=== PATIENT | female | born 1985 | race American Indian/Alaskan Native ===

== ENCOUNTER 2016-10-10 15:44 | Emergency (ER) | payer SELFPAY ==
[2016-10-10 16:29] LABS: Bilirubin,Urine NEG (Negative); Blood,Urine SM (Negative); Ketones,Urine NEG (Negative); Leukocyte Esterase,Urine SM (Negative); Mucus,Urine FEW /HPF; Nitrite,Urine NEG (Negative); Urobilinogen,Urine < 2.0 mg/dL (<2.0)
[2016-10-10 16:44] LABS: Basophils % (Auto) 0.7 % (0.0-1.8); Eosinophils % (Auto) 1.2 % (0.0-4.3); Hematocrit 41.8 % (30.3-42.9); Hemoglobin 13.7 gm/dl (10.1-14.3); Mean Corpuscular HGB Conc 33 % (30-34); Mean Corpuscular Hemoglobin 28 pg (28-32); Mean Corpuscular Volume 86 fl (79-97); Platelet Count 263 K/mm3 (140-440); Red Blood Count 4.85 M/mm3 (3.65-5.03); Red Cell Distribution Width 12.7 % (13.2-15.2); White Blood Count 12.2 K/mm3 (4.5-11.0)
[2016-10-10 16:59] LABS: Alanine Aminotransferase 14 units/L (7-56); Albumin 4.4 g/dL (3.9-5); Albumin/Globulin Ratio 1.1 %; Alkaline Phosphatase 77 units/L (35-129); Anion Gap 17 mmol/L; BUN/Creatinine Ratio 12.22; Blood Urea Nitrogen 11 mg/dL (7-17); Calcium 9.8 mg/dL (8.4-10.2); Carbon Dioxide 28 mmol/L (22-30); Chloride 98.2 mmol/L (98-107); Glucose 96 mg/dL (65-100); Lipase 17 units/L (13-60); Potassium 4.4 mmol/L (3.6-5.0); Sodium 139 mmol/L (137-145); Total Protein 8.3 g/dL (6.3-8.2)
[2016-10-10] MEDS ORDERED: ZOFRAN PO ONE (19:13)
[2016-10-10] MEDS ORDERED: TORADOL IM ONE (19:13)
[2016-10-10] MEDS ORDERED: ZOFRAN ODT PO ONE (20:00)
[2016-10-10 20:10] VITALS: BP 131/98
--- NOTE | 2016-10-10 21:09 | Emergency Department Report ---
Entered by FABBY MUÑOZ, acting as scribe for MARK MENDEZ PA. ED Abdominal Pain HPI - General Chief Complaint: Abdominal Pain Stated Complaint: LT SIDE PAIN/ABD PAIN/PRESSURE WHEN URINATE Source: patient Mode of arrival: Ambulatory Limitations: No Limitations - History of Present Illness Initial Comments: 31 year old female with no significant PMHx presents to the ED left lower abdominal pain that began 1 week ago. Associated symptoms include nausea, vomiting, and hematuria, but she denies vaginal discharge, vaginal itching, back pain, chest pain, and SOB. Patients states she feels pressure in her lower abdomen during urination. Denies any Hx of kidney stones or similar abdominal symptoms. Notes she had a in 2011, which she experiences sharp left pain on incision scar. LMP 10/01/2016. Complaint: abdominal pain Onset/Timin -: week(s) Location: LLQ, suprapubic Radiation: none, suprapubic Migration to: no migration Severity: moderate Quality: sharp, other (pressure during urination) Consistency: constant Improves With: nothing Worsens With: other (urination) Associated Symptoms: denies other symptoms, nausea, vomiting, hematuria. denies : diarrhea, fever, chills, dysuria, other (vaginal discharge, vaginal itching, back pain, chest pain, and SOB) - Related Data LMP Date: 10/01/16 LMP (females 10-50): last week Previous Rx's Medication Instructions Recorded Last Taken Type Ondansetron [Zofran Odt] 4 mg PO BID PRN #6 tab.rapdis 10/10/16 Unknown Rx Phenazopyridine [Pyridium] 100 mg PO TID #9 tab 10/10/16 Unknown Rx Sulfamethoxazole/Trimethoprim 1 each PO BID #20 tablet 10/10/16 Unknown Rx [Bactrim DS TAB] Allergies Allergy/AdvReac Type Severity Reaction Status Date / Time No Known Allergies Allergy Unverified 10/10/16 15:54 ED Review of Systems Comment: All other systems reviewed and negative Constitutional: denies: chills, fever Eyes: denies: eye pain ENT: denies: ear pain, throat pain Respiratory: no symptoms reported. denies: cough, shortness of breath Cardiovascular: denies: chest pain Endocrine: no symptoms reported Gastrointestinal: abdominal pain (left lower), nausea, vomiting. denies: diarrhea Genitourinary: dysuria, hematuria. denies: discharge, other (vaginal itching) Musculoskeletal: denies: back pain Skin: denies: rash Neurological: denies: headache, numbness Psychiatric: denies: anxiety, depression Hematological/Lymphatic: denies: easy bleeding ED Past Medical Hx - Past Medical History Previous Medical History?: No - Surgical History Past Surgical History?: Yes Additional Surgical History: - Social History Smoking Status: Never Smoker Substance Use Type: Alcohol - Medications Home Medications: Home Medications Medication Instructions Recorded Confirmed Last Taken Type Ondansetron [Zofran Odt] 4 mg PO BID PRN #6 tab.rapdis 10/10/16 Unknown Rx Phenazopyridine [Pyridium] 100 mg PO TID #9 tab 10/10/16 Unknown Rx Sulfamethoxazole/Trimethoprim 1 each PO BID #20 tablet 10/10/16 Unknown Rx [Bactrim DS TAB] ED Physical Exam - General Limitations: No Limitations General appearance: alert, in no apparent distress - Head Head exam: Present: atraumatic, normocephalic - Eye Eye exam: Present: normal appearance, EOMI - ENT ENT exam: Present: normal exam, mucous membranes moist - Neck Neck exam: Present: normal inspection, full ROM - Respiratory Respiratory exam: Present: normal lung sounds bilaterally. Absent: respiratory distress - Cardiovascular Cardiovascular Exam: Present: regular rate, normal rhythm. Absent: systolic murmur, diastolic murmur, rubs, gallop - GI/Abdominal GI/Abdominal exam: Present: soft, tenderness (LLQ), normal bowel sounds, other ( no CVA tenderness). Absent: distended, guarding, rebound, rigid - Rectal Rectal exam: Present: deferred - External exam: Present: normal external exam Speculum exam: Absent: erythema, vaginal discharge, vaginal bleeding - Extremities Exam Extremities exam: Present: normal inspection, full ROM - Back Exam Back exam: Present: normal inspection, full ROM - Neurological Exam Neurological exam: Present: alert, oriented X3, normal gait - Psychiatric Psychiatric exam: Present: normal affect, normal mood - Skin Skin exam: Present: warm, dry, intact. Absent: rash ED Course Vital Signs 10/10/16 10/10/16 10/10/16 15:51 20:09 20:10 Temperature 97.7 F Pulse Rate 79 86 Respiratory 16 18 18 Rate Blood Pressure 151/98 Blood Pressure 131/98 [Left] O2 Sat by Pulse 100 99 99 Oximetry ED Medical Decision Making - Lab Data Result diagrams: 10/10/16 16:01 10/10/16 16:01 Lab Results 10/10/16 10/10/16 10/10/16 Range/Units 16:01 16:01 16:03 WBC 12.2 H (4.5-11.0) K/mm3 RBC 4.85 (3.65-5.03) M/mm3 Hgb 13.7 (10.1-14.3) gm/dl Hct 41.8 (30.3-42.9) % MCV 86 (79-97) fl MCH 28 (28-32) pg MCHC 33 (30-34) % RDW 12.7 L (13.2-15.2) % Plt Count 263 (140-440) K/mm3 Lymph % (Auto) 27.0 (13.4-35.0) % [place] % (Auto) 5.4 (0.0-7.3) % Eos % (Auto) 1.2 (0.0-4.3) % Baso % (Auto) 0.7 (0.0-1.8) % Lymph # 3.3 (1.2-5.4) K/mm3 [place] # 0.7 (0.0-0.8) K/mm3 Eos # 0.1 (0.0-0.4) K/mm3 Baso # 0.1 (0.0-0.1) K/mm3 Seg Neutrophils % 65.7 (40.0-70.0) % Seg Neutrophils # 8.0 H (1.8-7.7) K/mm3 Sodium 139 (137-145) mmol/L Potassium 4.4 (3.6-5.0) mmol/L Chloride 98.2 (98-107) mmol/L Carbon Dioxide 28 (22-30) mmol/L Anion Gap 17 mmol/L BUN 11 (7-17) mg/dL Creatinine 0.9 (0.7-1.2) mg/dL Estimated GFR > 60 ml/min BUN/Creatinine Ratio 12.22 % Glucose 96 (65-100) mg/dL Calcium 9.8 (8.4-10.2) mg/dL Total Bilirubin 0.30 (0.1-1.2) mg/dL AST 18 (5-40) units/L ALT 14 (7-56) units/L Alkaline Phosphatase 77 (35-129) units/L Total Protein 8.3 H (6.3-8.2) g/dL Albumin 4.4 (3.9-5) g/dL Albumin/Globulin Ratio 1.1 % Lipase 17 (13-60) units/L Urine Color Yellow (Yellow) Urine Turbidity Clear (Clear) Urine pH 6.0 (5.0-7.0) Ur Specific [place] 1.016 (1.003-1.030) Urine Protein 100 mg/dl (Negative) mg/dL Urine Glucose (UA) Neg (Negative) mg/dL Urine Ketones Neg (Negative) mg/dL Urine Blood Sm (Negative) Urine Nitrite Neg (Negative) Urine Bilirubin Neg (Negative) Urine Urobilinogen < 2.0 (<2.0) mg/dL Ur Leukocyte Esterase Sm (Negative) Urine WBC (Auto) 95.0 H (0.0-6.0) /HPF Urine RBC (Auto) 14.0 (0.0-6.0) /HPF U Epithel Cells (Auto) < 1.0 (0-13.0) /HPF Urine Mucus Few /HPF Urine HCG, Qual Negative (Negative) - Medical Decision Making 31 year old female presents to ED with left sided lower abd pain/pelvic pain and dysuria x1 week. patient lab results consistent with UTI and will be prescribed Bactrim and Pyridium. patient is stable, neurologically intact and in no acute distress. ED Disposition Clinical Impression: UTI (urinary tract infection) Qualifiers: Urinary tract infection type: acute cystitis Hematuria presence: with hematuria Qualified Code(s): N30.01 - Acute cystitis with hematuria Disposition: DISCHARGED TO HOME OR SELFCARE Is pt being admited?: No Does the pt Need Aspirin: No Condition: Stable Instructions: Abdominal Pain (ED) Prescriptions: Ondansetron [Zofran Odt] 4 mg PO BID PRN #6 tab.rapdis PRN Reason: Nausea Phenazopyridine [Pyridium] 100 mg PO TID #9 tab Sulfamethoxazole/Trimethoprim [Bactrim DS TAB] 1 each PO BID #20 tablet Referrals: PRIMARY CARE, [Primary Care Provider] - 3-5 Days Forms: Work/School Release Form(ED) This documentation as recorded by the scribeTONI JASMINE,accurately reflects the service I personally performed and the decisions made by ,MARK MENDEZ PA.
== END 2016-10-10 22:00 | disposition home or self-care (01) ==
LOC: ED 15:44
DX: N30.01 Acute cystitis with hematuria (principal)
CPT/HCPCS: 36415; 80053; 81001; 81025; 83690; 85025; 87210; 87591; 96372; 99284; J1885; Q0162

== ENCOUNTER 2018-03-18 20:27 | Emergency (ER) | payer SELFPAY ==
[2018-03-19] MEDS ORDERED: BENADRYL PO ONE (00:37)
[2018-03-19] MEDS ORDERED: ULTRAM PO ONE (00:37)
--- NOTE | 2018-03-19 01:04 | Emergency Department Report ---
- General Chief complaint: Skin/Abscess/Foreign Body Stated complaint: RED BUMPS/SWELLING/ARMS/BACK Time Seen by Provider: 03/19/18 00:37 Source: patient Mode of arrival: Ambulatory Limitations: No Limitations - History of Present Illness Initial comments: There is a 32-year-old female female who presents from multiple infected mosquito bites mild erythema and pain history patient states allergic allergies to same is no fever no chills no cough no wheezing no stridor no nausea vomiting or shortness of breath no chest pain symptoms exacerbated by itch scratch cycle patient has not taken [id number] Benadryl Onset/Timin -: days(s) Tetanus Up to Date: yes Location: LUE, RUE, LLE, RLE Severity: moderate Severity scale (0 -10): 4 Quality: burning, other (itching ) Consistency: constant Improves with: none, other (itch scratch cycle ) Worsens with: none Context: none Associated symptoms: other (itching) Treatments Prior to Arrival: none - Related Data Previous Rx's Medication Instructions Recorded Last Taken Type Ondansetron [Zofran Odt] 4 mg PO BID PRN #6 tab.rapdis 10/10/16 Unknown Rx Phenazopyridine [Pyridium] 100 mg PO TID #9 tab 10/10/16 Unknown Rx Sulfamethoxazole/Trimethoprim 1 each PO BID #20 tablet 10/10/16 Unknown Rx [Bactrim DS TAB] Cephalexin [Keflex] 500 mg PO TID #30 capsule 03/19/18 Unknown Rx Diphenhydramine HCl [Benadryl GEL] 1 applicatio TP QID PRN #1 bottle 03/19/18 Unknown Rx Metoclopramide [Reglan] 10 mg PO TID PRN 7 Days #28 tab 03/19/18 Unknown Rx diphenhydrAMINE [Benadryl CAP] 25 mg PO Q6HR PRN #30 capsule 03/19/18 Unknown Rx predniSONE [Deltasone] 40 mg PO QDAY 5 Days #10 tab 03/19/18 Unknown Rx Allergies Allergy/AdvReac Type Severity Reaction Status Date / Time No Known Allergies Allergy Verified 03/18/18 20:35 Abscess Boil HPI - HPI Chief Complaint: Skin/Abscess/Foreign Body Stated Complaint: RED BUMPS/SWELLING/ARMS/BACK Time Seen by Provider: 03/19/18 00:37 Home Medications: Previous Rx's Medication Instructions Recorded Last Taken Type Ondansetron [Zofran Odt] 4 mg PO BID PRN #6 tab.rapdis 10/10/16 Unknown Rx Phenazopyridine [Pyridium] 100 mg PO TID #9 tab 10/10/16 Unknown Rx Sulfamethoxazole/Trimethoprim 1 each PO BID #20 tablet 10/10/16 Unknown Rx [Bactrim DS TAB] Cephalexin [Keflex] 500 mg PO TID #30 capsule 03/19/18 Unknown Rx Diphenhydramine HCl [Benadryl GEL] 1 applicatio TP QID PRN #1 bottle 03/19/18 Unknown Rx Metoclopramide [Reglan] 10 mg PO TID PRN 7 Days #28 tab 03/19/18 Unknown Rx diphenhydrAMINE [Benadryl CAP] 25 mg PO Q6HR PRN #30 capsule 03/19/18 Unknown Rx predniSONE [Deltasone] 40 mg PO QDAY 5 Days #10 tab 03/19/18 Unknown Rx Allergies/Adverse Reactions: Allergies Allergy/AdvReac Type Severity Reaction Status Date / Time No Known Allergies Allergy Verified 03/18/18 20:35 ED Review of Systems ROS: Stated complaint: RED BUMPS/SWELLING/ARMS/BACK Other details as noted in HPI Constitutional: denies: chills, fever Eyes: denies: eye pain, eye discharge, vision change ENT: denies: ear pain, throat pain Respiratory: denies: cough, shortness of breath, wheezing Cardiovascular: denies: chest pain, palpitations Endocrine: no symptoms reported Gastrointestinal: denies: abdominal pain, nausea, diarrhea Genitourinary: denies: urgency, dysuria, discharge Musculoskeletal: denies: back pain, joint swelling, arthralgia Skin: rash, lesions (bilat extrem upper and lower ) Neurological: denies: headache, weakness, paresthesias Psychiatric: denies: anxiety, depression Hematological/Lymphatic: denies: easy bleeding, easy bruising ED Past Medical Hx - Past Medical History Previous Medical History?: No - Surgical History Past Surgical History?: Yes Additional Surgical History: - Social History Smoking Status: Never Smoker Substance Use Type: None - Medications Home Medications: Home Medications Medication Instructions Recorded Confirmed Last Taken Type Ondansetron [Zofran Odt] 4 mg PO BID PRN #6 tab.rapdis 10/10/16 Unknown Rx Phenazopyridine [Pyridium] 100 mg PO TID #9 tab 10/10/16 Unknown Rx Sulfamethoxazole/Trimethoprim 1 each PO BID #20 tablet 10/10/16 Unknown Rx [Bactrim DS TAB] Cephalexin [Keflex] 500 mg PO TID #30 capsule 03/19/18 Unknown Rx Diphenhydramine HCl [Benadryl GEL] 1 applicatio TP QID PRN #1 bottle 03/19/18 Unknown Rx Metoclopramide [Reglan] 10 mg PO TID PRN 7 Days #28 tab 03/19/18 Unknown Rx diphenhydrAMINE [Benadryl CAP] 25 mg PO Q6HR PRN #30 capsule 03/19/18 Unknown Rx predniSONE [Deltasone] 40 mg PO QDAY 5 Days #10 tab 03/19/18 Unknown Rx ED Physical Exam - General Limitations: No Limitations General appearance: alert, in no apparent distress - Head Head exam: Present: atraumatic, normocephalic - Eye Eye exam: Present: normal appearance - ENT ENT exam: Present: mucous membranes moist - Neck Neck exam: Present: normal inspection - Respiratory Respiratory exam: Present: normal lung sounds bilaterally. Absent: respiratory distress - Cardiovascular Cardiovascular Exam: Present: regular rate, normal rhythm. Absent: systolic murmur, diastolic murmur, rubs, gallop - GI/Abdominal GI/Abdominal exam: Present: soft, normal bowel sounds - Rectal Rectal exam: Present: deferred - Extremities Exam Extremities exam: Present: normal inspection - Back Exam Back exam: Present: normal inspection - Neurological Exam Neurological exam: Present: alert, oriented X3, normal gait, reflexes normal - Psychiatric Psychiatric exam: Present: normal affect, normal mood - Skin Skin exam: Present: warm, dry, intact, erythema, urticaria, other (papules erythema pruritis). Absent: rash ED Course Vital Signs 03/18/18 20:35 Temperature 97.7 F Pulse Rate 72 Respiratory 16 Rate Blood Pressure 127/78 O2 Sat by Pulse 98 Oximetry ED Medical Decision Making - Medical Decision Making Infected insect bites mild cellulitis contact dermatitis plan prednisone Keflex Benadryl ibuprofen Reglan patient will follow with PCP in 2-3 days patient verbalized understanding and signed patient DC'd home in stable condition at this time Critical care attestation.: If time is entered above; I have spent that time in minutes in the direct care of this critically ill patient, excluding procedure time. ED Disposition Clinical Impression: Infected insect bite Qualifiers: Encounter type: initial encounter Qualified Code(s): W57.XXXA - Bitten or stung by nonvenomous insect and other nonvenomous arthropods, initial encounter Disposition: TO HOME OR SELFCARE Is pt being admited?: No Does the pt Need Aspirin: No Condition: Good Instructions: Contact Dermatitis (ED), Cellulitis (ED) Prescriptions: Cephalexin [Keflex] 500 mg PO TID #30 capsule diphenhydrAMINE [Benadryl CAP] 25 mg PO Q6HR PRN #30 capsule PRN Reason: allergies Diphenhydramine HCl [Benadryl GEL] 1 applicatio TP QID PRN #1 bottle PRN Reason: Itching Metoclopramide [Reglan] 10 mg PO TID PRN 7 Days #28 tab PRN Reason: allergies predniSONE [Deltasone] 40 mg PO QDAY 5 Days #10 tab Referrals: PRIMARY CARE, [Primary Care Provider] - 3-5 Days Forms: Work/School Release Form(ED) Time of Disposition: 01:04
[2018-03-19 01:16] VITALS: BP 114/65
== END 2018-03-19 01:14 | disposition home or self-care (01) ==
LOC: ED 20:27
DX: T14.8XXA Other injury of unspecified body region, initial encounter (principal); W57.XXXA Bitten or stung by nonvenomous insect and other nonvenomous arthropods, initial encounter; Y93.89 Activity, other specified; Y99.8 Other external cause status; Y92.89 Other specified places as the place of occurrence of the external cause
CPT/HCPCS: 99282

== ENCOUNTER 2019-08-19 05:33 | Emergency (ER) | payer OTHER ==
[2019-08-19 06:13] VITALS: BP 129/80
[2019-08-19] MEDS ORDERED: ONDANSETRON 4 MG ODT TAB PO ONE (08:15)
[2019-08-19 08:39] LABS: Basophils # (Auto) 0.1 K/mm3 (0.0-0.1); Eosinophils # (Auto) 0.1 K/mm3 (0.0-0.4); Eosinophils % (Auto) 1.5 % (0.0-4.3); Hematocrit 44.6 % (30.3-42.9); Hemoglobin 14.6 gm/dl (10.1-14.3); Lymphocytes # (Auto) 2.8 K/mm3 (1.2-5.4); Lymphocytes % (Auto) 31.6 % (13.4-35.0); Mean Corpuscular HGB Conc 33 % (30-34); Mean Corpuscular Volume 89 fl (79-97); Monocytes # (Auto) 0.6 K/mm3 (0.0-0.8); Monocytes % (Auto) 6.5 % (0.0-7.3); Platelet Count 283 K/mm3 (140-440); Red Blood Count 5.04 M/mm3 (3.65-5.03); Red Cell Distribution Width 13.5 % (13.2-15.2)
[2019-08-19 08:44] LABS: Bilirubin,Urine NEG (Negative); Blood,Urine LG (Negative); Color,Urine Yellow (Yellow); Mucus,Urine 2+ /HPF; Urobilinogen,Urine < 2.0 mg/dL (<2.0)
[2019-08-19 08:45] LABS: HCG Qualitative,Urine Negative (Negative)
--- NOTE | 2019-08-19 08:53 | Emergency Department Report ---
ED Abdominal Pain HPI - General Chief Complaint: Abdominal Pain Stated Complaint: VOMITING/BODY ACHES Time Seen by Provider: 08/19/19 07:41 Source: patient Mode of arrival: Ambulatory Limitations: No Limitations - History of Present Illness Initial Comments: 34-year-old -[place] female without significant past medical history presents with complaints of nausea/vomiting, body aches/chills, and lower abdominal pain yesterday. She reports about 6 episodes of vomiting, however she denies any hematemesis/coffee-ground emesis, constipation/diar ji/melena/hematochezia, fever, cough/shortness of breath, or history of abdominal surgeries. She states she is currently on her menstrual cycle. She rates her current pain as a 6/10 in severity and describes it as aching in nature. Patient does admit to urinary frequency and dysuria that began last week, however she states it is improving. She admits to history of recurrent urinary tract infections. Patient denies any flank pain, vaginal discharge, dyspareunia, or concern for STIs. MD Complaint: abdominal pain - Related Data Previous Rx's Medication Instructions Recorded Last Taken Type Ondansetron [Zofran Odt] 4 mg PO BID PRN #6 tab.rapdis 10/10/16 Unknown Rx Phenazopyridine [Pyridium] 100 mg PO TID #9 tab 10/10/16 Unknown Rx Sulfamethoxazole/Trimethoprim 1 each PO BID #20 tablet 10/10/16 Unknown Rx [Bactrim DS TAB] Cephalexin [Keflex] 500 mg PO TID #30 capsule 03/19/18 Unknown Rx Diphenhydramine HCl [Benadryl GEL] 1 applicatio TP QID PRN #1 bottle 03/19/18 Unknown Rx Metoclopramide [Reglan] 10 mg PO TID PRN 7 Days #28 tab 03/19/18 Unknown Rx diphenhydrAMINE [Benadryl CAP] 25 mg PO Q6HR PRN #30 capsule 03/19/18 Unknown Rx predniSONE [Deltasone] 40 mg PO QDAY 5 Days #10 tab 03/19/18 Unknown Rx Acetaminophen/Codeine [Tylenol 1 tab PO Q6H #10 tab 06/04/18 Unknown Rx /Codeine # 3 tab] Ibuprofen [Motrin] 800 mg PO Q8HR #40 tablet 06/04/18 Unknown Rx Ondansetron [Zofran Odt] 4 mg PO Q6HR #15 tab.rapdis 08/19/19 Unknown Rx Sulfamethoxazole/Trimethoprim 1 each PO BID 7 Days #14 tablet 08/19/19 Unknown Rx [Bactrim DS TAB] Allergies Allergy/AdvReac Type Severity Reaction Status Date / Time No Known Allergies Allergy Verified 03/18/18 20:35 ED Review of Systems ROS: Stated complaint: VOMITING/BODY ACHES Other details as noted in HPI Constitutional: chills, malaise. denies: diaphoresis, fever Eyes: denies: vision change ENT: denies: throat pain, congestion Respiratory: denies: cough, shortness of breath Cardiovascular: denies: palpitations Gastrointestinal: abdominal pain, nausea, vomiting. denies: diarrhea, constipation, hematemesis, melena, hematochezia Genitourinary: dysuria, frequency. denies: hematuria, discharge Musculoskeletal: denies: back pain Skin: denies: rash, lesions, change in color Neurological: denies: headache, paresthesias Hematological/Lymphatic: denies: easy bleeding, swollen glands ED Past Medical Hx - Past Medical History Previous Medical History?: No - Surgical History Past Surgical History?: Yes Additional Surgical History: - Social History Smoking Status: Never Smoker Substance Use Type: None - Medications Home Medications: Home Medications Medication Instructions Recorded Confirmed Last Taken Type Ondansetron [Zofran Odt] 4 mg PO BID PRN #6 tab.rapdis 10/10/16 Unknown Rx Phenazopyridine [Pyridium] 100 mg PO TID #9 tab 10/10/16 Unknown Rx Sulfamethoxazole/Trimethoprim 1 each PO BID #20 tablet 10/10/16 Unknown Rx [Bactrim DS TAB] Cephalexin [Keflex] 500 mg PO TID #30 capsule 03/19/18 Unknown Rx Diphenhydramine HCl [Benadryl GEL] 1 applicatio TP QID PRN #1 bottle 03/19/18 Unknown Rx Metoclopramide [Reglan] 10 mg PO TID PRN 7 Days #28 tab 03/19/18 Unknown Rx diphenhydrAMINE [Benadryl CAP] 25 mg PO Q6HR PRN #30 capsule 03/19/18 Unknown Rx predniSONE [Deltasone] 40 mg PO QDAY 5 Days #10 tab 03/19/18 Unknown Rx Acetaminophen/Codeine [Tylenol 1 tab PO Q6H #10 tab 06/04/18 Unknown Rx /Codeine # 3 tab] Ibuprofen [Motrin] 800 mg PO Q8HR #40 tablet 06/04/18 Unknown Rx Ondansetron [Zofran Odt] 4 mg PO Q6HR #15 tab.rapdis 08/19/19 Unknown Rx Sulfamethoxazole/Trimethoprim 1 each PO BID 7 Days #14 tablet 08/19/19 Unknown Rx [Bactrim DS TAB] ED Physical Exam - General Limitations: No Limitations General appearance: alert, in no apparent distress - Head Head exam: Present: atraumatic, normocephalic - Eye Eye exam: Present: normal appearance. Absent: scleral icterus - ENT ENT exam: Present: mucous membranes moist - Neck Neck exam: Present: normal inspection - Respiratory Respiratory exam: Present: normal lung sounds bilaterally. Absent: respiratory distress - Cardiovascular Cardiovascular Exam: Present: regular rate, normal rhythm. Absent: systolic murmur, diastolic murmur, rubs, gallop - GI/Abdominal GI/Abdominal exam: Present: soft, tenderness (Mild suprapubic), normal bowel sounds. Absent: distended, guarding, rebound, rigid - Extremities Exam Extremities exam: Present: normal inspection - Back Exam Back exam: Present: normal inspection. Absent: CVA tenderness (R), CVA tenderness (L) - Neurological Exam Neurological exam: Present: alert, oriented X3 - Psychiatric Psychiatric exam: Present: normal affect, normal mood - Skin Skin exam: Present: warm, dry, intact, normal color. Absent: rash, cyanosis, diaphoretic, erythema, pallor, ecchymosis ED Course Vital Signs 08/19/19 06:02 Temperature 97.2 F L Pulse Rate 62 Respiratory 18 Rate Blood Pressure 129/80 O2 Sat by Pulse 99 Oximetry ED Medical Decision Making - Lab Data Result diagrams: 08/19/19 08:12 Lab Results 08/19/19 08/19/19 08/19/19 Range/Units 08:09 08:12 08:12 WBC 8.9 (4.5-11.0) K/mm3 RBC 5.04 H (3.65-5.03) M/mm3 Hgb 14.6 H (10.1-14.3) gm/dl Hct 44.6 H (30.3-42.9) % MCV 89 (79-97) fl MCH 29 (28-32) pg MCHC 33 (30-34) % RDW 13.5 (13.2-15.2) % Plt Count 283 (140-440) K/mm3 Lymph % (Auto) 31.6 (13.4-35.0) % [place] % (Auto) 6.5 (0.0-7.3) % Eos % (Auto) 1.5 (0.0-4.3) % Baso % (Auto) 1.0 (0.0-1.8) % Lymph # 2.8 (1.2-5.4) K/mm3 [place] # 0.6 (0.0-0.8) K/mm3 Eos # 0.1 (0.0-0.4) K/mm3 Baso # 0.1 (0.0-0.1) K/mm3 Seg Neutrophils % 59.4 (40.0-70.0) % Seg Neutrophils # 5.3 (1.8-7.7) K/mm3 Sodium 140 (137-145) mmol/L Potassium 4.6 (3.6-5.0) mmol/L Chloride 102.8 (98-107) mmol/L Carbon Dioxide 24 (22-30) mmol/L Anion Gap 18 mmol/L BUN 15 (7-17) mg/dL Creatinine 1.0 (0.7-1.2) mg/dL Estimated GFR > 60 ml/min BUN/Creatinine Ratio 15 % Glucose 89 (65-100) mg/dL Calcium 10.4 H (8.4-10.2) mg/dL Total Bilirubin (0.1-1.2) mg/dL Direct Bilirubin (0-0.2) mg/dL AST (5-40) units/L ALT (7-56) units/L Alkaline Phosphatase (35-129) units/L Total Protein (6.3-8.2) g/dL Albumin (3.9-5) g/dL Albumin/Globulin Ratio % Lipase (13-60) units/L Urine Color Yellow (Yellow) Urine Turbidity Slightly-cloudy (Clear) Urine pH 5.0 (5.0-7.0) Ur Specific [place] 1.034 H (1.003-1.030) Urine Protein 30 mg/dl (Negative) mg/dL Urine Glucose (UA) Neg (Negative) mg/dL Urine Ketones Neg (Negative) mg/dL Urine Blood Lg (Negative) Urine Nitrite Neg (Negative) Urine Bilirubin Neg (Negative) Urine Urobilinogen < 2.0 (<2.0) mg/dL Ur Leukocyte Esterase Lg (Negative) Urine WBC (Auto) 53.0 H (0.0-6.0) /HPF Urine RBC (Auto) 6.0 (0.0-6.0) /HPF U Epithel Cells (Auto) 8.0 (0-13.0) /HPF Urine Mucus 2+ /HPF Urine HCG, Qual Negative (Negative) Influenza A (Rapid) (Negative) Influenza B (Rapid) (Negative) 08/19/19 08/19/19 Range/Units 08:12 Unknown WBC (4.5-11.0) K/mm3 RBC (3.65-5.03) M/mm3 Hgb (10.1-14.3) gm/dl Hct (30.3-42.9) % MCV (79-97) fl MCH (28-32) pg MCHC (30-34) % RDW (13.2-15.2) % Plt Count (140-440) K/mm3 Lymph % (Auto) (13.4-35.0) % [place] % (Auto) (0.0-7.3) % Eos % (Auto) (0.0-4.3) % Baso % (Auto) (0.0-1.8) % Lymph # (1.2-5.4) K/mm3 [place] # (0.0-0.8) K/mm3 Eos # (0.0-0.4) K/mm3 Baso # (0.0-0.1) K/mm3 Seg Neutrophils % (40.0-70.0) % Seg Neutrophils # (1.8-7.7) K/mm3 Sodium (137-145) mmol/L Potassium (3.6-5.0) mmol/L Chloride (98-107) mmol/L Carbon Dioxide (22-30) mmol/L Anion Gap mmol/L BUN (7-17) mg/dL Creatinine (0.7-1.2) mg/dL Estimated GFR ml/min BUN/Creatinine Ratio % Glucose (65-100) mg/dL Calcium (8.4-10.2) mg/dL Total Bilirubin 0.20 (0.1-1.2) mg/dL Direct Bilirubin < 0.2 (0-0.2) mg/dL AST 17 (5-40) units/L ALT 10 (7-56) units/L Alkaline Phosphatase 68 (35-129) units/L Total Protein 8.4 H (6.3-8.2) g/dL Albumin 4.5 (3.9-5) g/dL Albumin/Globulin Ratio 1.2 % Lipase 19 (13-60) units/L Urine Color (Yellow) Urine Turbidity (Clear) Urine pH (5.0-7.0) Ur Specific [place] (1.003-1.030) Urine Protein (Negative) mg/dL Urine Glucose (UA) (Negative) mg/dL Urine Ketones (Negative) mg/dL Urine Blood (Negative) Urine Nitrite (Negative) Urine Bilirubin (Negative) Urine Urobilinogen (<2.0) mg/dL Ur Leukocyte Esterase (Negative) Urine WBC (Auto) (0.0-6.0) /HPF Urine RBC (Auto) (0.0-6.0) /HPF U Epithel Cells (Auto) (0-13.0) /HPF Urine Mucus /HPF Urine HCG, Qual (Negative) Influenza A (Rapid) Negative (Negative) Influenza B (Rapid) Negative (Negative) - Medical Decision Making Patient here with complaints of nausea and vomiting and lower abdominal pain starting yesterday. White count is normal CBC. CMP is without acute findings. Lipase is normal. UA shows 53 WBCs. Patient did admits to urinary symptoms. Patient's vitals are normal she is negative for CVA tenderness on exam. After p.o. Zofran, patient is tolerating oral intake with fluids. She is well- appearing and stable for discharge home. Will treat for urinary tract infection with Bactrim. Recommend follow-up with primary care provider within 3 to 5 days. Discussed strict return precautions in detail with patient who verbalizes understanding. Critical care attestation.: If time is entered above; I have spent that time in minutes in the direct care of this critically ill patient, excluding procedure time. ED Disposition Clinical Impression: Cystitis Nausea & vomiting Qualifiers: Vomiting type: unspecified Vomiting Intractability: non-intractable Qualified Code(s): R11.2 - Nausea with vomiting, unspecified Disposition: DC-01 TO HOME OR SELFCARE Is pt being admited?: No Condition: Stable Instructions: Urinary Tract Infection in Women (ED), Acute Nausea and Vomiting (ED) Prescriptions: Sulfamethoxazole/Trimethoprim [Bactrim DS TAB] 1 each PO BID 7 Days #14 tablet Ondansetron [Zofran Odt] 4 mg PO Q6HR #15 tab.rapdis Referrals: PRIMARY CARE, [Primary Care Provider] - 3-5 Days
[2019-08-19 09:00] LABS: BUN/Creatinine Ratio 15; Blood Urea Nitrogen 15 mg/dL (7-17); Calcium 10.4 mg/dL (8.4-10.2); Hemolysis Index 4
[2019-08-19 09:02] LABS: Alanine Aminotransferase 10 units/L (7-56); Albumin 4.5 g/dL (3.9-5); Bilirubin,Direct < 0.2 mg/dL (0-0.2)
== END 2019-08-19 09:51 | disposition home or self-care (01) ==
LOC: ED 05:33
DX: N30.80 Other cystitis without hematuria (principal); Z98.890 Other specified postprocedural states; Z79.899 Other long term (current) drug therapy
CPT/HCPCS: 36415; 80048; 80076; 81001; 81025; 83690; 85025; 87086; 87400; Q0162

== ENCOUNTER 2021-01-07 12:27 | Emergency (ER) | payer OTHER ==
[2021-01-07 15:13] VITALS: BP 178/99
== END 2021-01-07 16:12 | disposition left against medical advice (07) ==
LOC: ED 12:27
DX: R51.9 Headache, unspecified (principal); Z53.21 Procedure and treatment not carried out due to patient leaving prior to being seen by health care provider

== ENCOUNTER 2021-02-03 08:59 | Emergency (ER) | payer OTHER ==
[2021-02-03 09:52] VITALS: BP 148/102
--- NOTE | 2021-02-03 11:29 | XRay Report ---
RIGHT ANKLE 3 VIEW(S) INDICATION / CLINICAL INFORMATION: R ankle pain post fall COMPARISON: None available. FINDINGS: BONES / JOINT(S): No acute fracture or subluxation. No significant arthritis. SOFT TISSUES: No significant abnormality. ADDITIONAL FINDINGS: None. Signer Name: Stevie Buckley MD Signed: 02/03/2021 11:25 AM Workstation Name: [id number]
--- NOTE | 2021-02-03 11:37 | Emergency Department Report ---
ED Extremity Problem HPI - General Chief complaint: Extremity Injury, Lower Stated complaint: ANKLE/LEG INJURY Time Seen by Provider: 02/03/21 10:47 Source: patient Mode of arrival: Ambulatory Limitations: No Limitations - History of Present Illness Initial comments: Is a pleasant 35-year-old female presents the emergency department the chief complaint of pain in the bilateral ankles but worse in the right ankle. She reports she was hiking yesterday when she inverted the right ankle in a hole and has been having pain since. She reports the pain will radiate up the back of her heel. Pain is 7 out of 10 and really only present when she tries to bear weight. She denies any other injuries. Denies any her head or losing consciousness. - Related Data Previous Rx's Medication Instructions Recorded Last Taken Type Ondansetron [Zofran Odt] 4 mg PO BID PRN #6 tab.rapdis 10/10/16 Unknown Rx Phenazopyridine [Pyridium] 100 mg PO TID #9 tab 10/10/16 Unknown Rx Sulfamethoxazole/Trimethoprim 1 each PO BID #20 tablet 10/10/16 Unknown Rx [Bactrim DS TAB] Diphenhydramine HCl [Benadryl GEL] 1 applicatio TP QID PRN #1 bottle 03/19/18 Unknown Rx Metoclopramide [Reglan] 10 mg PO TID PRN 7 Days #28 tab 03/19/18 Unknown Rx cephALEXin [Keflex] 500 mg PO TID #30 capsule 03/19/18 Unknown Rx diphenhydrAMINE [Benadryl CAP] 25 mg PO Q6HR PRN #30 capsule 03/19/18 Unknown Rx predniSONE [Deltasone] 40 mg PO QDAY 5 Days #10 tab 03/19/18 Unknown Rx Acetaminophen/Codeine [Tylenol 1 tab PO Q6H #10 tab 06/04/18 Unknown Rx /Codeine # 3 tab] Ibuprofen [Motrin] 800 mg PO Q8HR #40 tablet 06/04/18 Unknown Rx Ondansetron [Zofran Odt] 4 mg PO Q6HR #15 tab.rapdis 08/19/19 Unknown Rx Sulfamethoxazole/Trimethoprim 1 each PO BID 7 Days #14 tablet 08/19/19 Unknown Rx [Bactrim DS TAB] Naproxen [Naprosyn TAB] 500 mg PO BID #20 tablet 02/03/21 Unknown Rx Allergies Allergy/AdvReac Type Severity Reaction Status Date / Time No Known Allergies Allergy Verified 03/18/18 20:35 ED Review of Systems ROS: Stated complaint: ANKLE/LEG INJURY Other details as noted in HPI Comment: All other systems reviewed and negative Constitutional: denies: chills, fever Eyes: denies: eye pain, eye discharge, vision change ENT: denies: ear pain, throat pain Respiratory: denies: cough, shortness of breath, wheezing Cardiovascular: denies: chest pain, palpitations Endocrine: no symptoms reported Gastrointestinal: denies: abdominal pain, nausea, diarrhea Genitourinary: denies: urgency, dysuria, discharge Musculoskeletal: as per HPI, arthralgia. denies: back pain, joint swelling Skin: denies: rash, lesions Neurological: denies: headache, weakness, paresthesias Psychiatric: denies: anxiety, depression Hematological/Lymphatic: denies: easy bleeding, easy bruising ED Past Medical Hx - Past Medical History Previous Medical History?: No - Surgical History Past Surgical History?: Yes Additional Surgical History: - Social History Smoking Status: Never Smoker Substance Use Type: Alcohol - Medications Home Medications: Home Medications Medication Instructions Recorded Confirmed Last Taken Type Ondansetron [Zofran Odt] 4 mg PO BID PRN #6 tab.rapdis 10/10/16 Unknown Rx Phenazopyridine [Pyridium] 100 mg PO TID #9 tab 10/10/16 Unknown Rx Sulfamethoxazole/Trimethoprim 1 each PO BID #20 tablet 10/10/16 Unknown Rx [Bactrim DS TAB] Diphenhydramine HCl [Benadryl GEL] 1 applicatio TP QID PRN #1 bottle 03/19/18 Unknown Rx Metoclopramide [Reglan] 10 mg PO TID PRN 7 Days #28 tab 03/19/18 Unknown Rx cephALEXin [Keflex] 500 mg PO TID #30 capsule 03/19/18 Unknown Rx diphenhydrAMINE [Benadryl CAP] 25 mg PO Q6HR PRN #30 capsule 03/19/18 Unknown Rx predniSONE [Deltasone] 40 mg PO QDAY 5 Days #10 tab 03/19/18 Unknown Rx Acetaminophen/Codeine [Tylenol 1 tab PO Q6H #10 tab 06/04/18 Unknown Rx /Codeine # 3 tab] Ibuprofen [Motrin] 800 mg PO Q8HR #40 tablet 06/04/18 Unknown Rx Ondansetron [Zofran Odt] 4 mg PO Q6HR #15 tab.rapdis 08/19/19 Unknown Rx Sulfamethoxazole/Trimethoprim 1 each PO BID 7 Days #14 tablet 08/19/19 Unknown Rx [Bactrim DS TAB] Naproxen [Naprosyn TAB] 500 mg PO BID #20 tablet 02/03/21 Unknown Rx ED Physical Exam - General Limitations: No Limitations General appearance: alert, in no apparent distress - Head Head exam: Present: atraumatic, normocephalic - Eye Eye exam: Present: normal appearance, PERRL, EOMI Pupils: Present: normal accommodation - ENT ENT exam: Present: normal exam, normal orophraynx, mucous membranes moist - Neck Neck exam: Present: normal inspection, full ROM. Absent: tenderness, meningismus - Respiratory Respiratory exam: Present: normal lung sounds bilaterally. Absent: respiratory distress, wheezes, rales, rhonchi, stridor - Cardiovascular Cardiovascular Exam: Present: regular rate, normal rhythm, normal heart sounds. Absent: systolic murmur, diastolic murmur, rubs, gallop - GI/Abdominal GI/Abdominal exam: Present: soft, normal bowel sounds. Absent: distended, tenderness, guarding, rebound, rigid - Extremities Exam Extremities exam: Present: normal inspection, full ROM, tenderness (Tenderness to the lateral right ankle below the lateral malleolus. No deformity. Mild s oft tissue swelling. Negative anterior drawer sign. Normal DP PT pulses. Negative Homans' sign, no posterior calf tenderness or palpable cords. Mild tenderness to the left ankle below the lateral malleolus. ) - Back Exam Back exam: Present: normal inspection, full ROM. Absent: tenderness, CVA tenderness (R), CVA tenderness (L) - Neurological Exam Neurological exam: Present: alert, oriented X3, normal gait - Psychiatric Psychiatric exam: Present: normal affect, normal mood - Skin Skin exam: Present: warm, dry, intact, normal color. Absent: rash ED Course Vital Signs 02/03/21 09:51 Temperature 98.8 F Pulse Rate 70 Respiratory 18 Rate Blood Pressure 148/102 O2 Sat by Pulse 100 Oximetry ED Medical Decision Making - Radiology Data Radiology results: report reviewed, image reviewed Ordering Physician: ROSEMARY RODRIGUEZ MD Date of Service: 02/03/21 Procedure(s): XR ankle 3+V RT Accession Number(s): [id number] cc: ROSEMARY RODRIGUEZ MD Fluoro Time In Minutes: RIGHT ANKLE 3 VIEW(S) INDICATION / CLINICAL INFORMATION: R ankle pain post fall COMPARISON: None available. FINDINGS: BONES / JOINT(S): No acute fracture or subluxation. No significant arthritis. SOFT TISSUES: No significant abnormality. ADDITIONAL FINDINGS: None. Signer Name: Stevie Buckley MD Signed: 02/03/2021 11:25 AM Workstation Name: [id number] Transcribed By: TL Dictated By: Stevie Buckley MD Electronically Authenticated By: Stevie Buckley MD Signed Date/Time: 02/03/21 1125 - Medical Decision Making X-ray is unremarkable right ankle. Bramwell criteria of the left ankle is negative. Patient will be given anti-inflammatories and recommended rest, compression, elevation and ice and outpatient follow-up with orthopedic surgery as needed. Patient instructed to return the [facility] department medially she develops any change or worsening symptoms. She verbalized understand the diagnosis, treatment plan and follow-up instructions and all of her questions were answered. She is a low risk by Wells criteria for DVT and no clinical symptoms of this. - Differential Diagnosis Strain, sprain, fracture Critical care attestation.: If time is entered above; I have spent that time in minutes in the direct care of this critically ill patient, excluding procedure time. ED Disposition Clinical Impression: Right ankle sprain Qualifiers: Encounter type: initial encounter Involved ligament of ankle: unspecified ligament Qualified Code(s): S93.401A - Sprain of unspecified ligament of right ankle, initial encounter Left ankle sprain Qualifiers: Encounter type: initial encounter Involved ligament of ankle: unspecified ligament Qualified Code(s): S93.402A - Sprain of unspecified ligament of left ankle, initial encounter Disposition: 01 HOME / SELF CARE / HOMELESS Is pt being admited?: No Condition: Stable Instructions: Ankle Sprain, [id number] Prescriptions: Naproxen [Naprosyn TAB] 500 mg PO BID #20 tablet Referrals: DOROTEO CRYSTAL MD [Staff Physician] - 3-5 Days Forms: Work/School Release Form(ED) Time of Disposition: 11:36
== END 2021-02-03 12:29 | disposition home or self-care (01) ==
LOC: ED 08:59
DX: S93.401A Sprain of unspecified ligament of right ankle, initial encounter (principal); S93.402A Sprain of unspecified ligament of left ankle, initial encounter; Z98.890 Other specified postprocedural states; X58.XXXA Exposure to other specified factors, initial encounter; Y93.89 Activity, other specified; Y92.89 Other specified places as the place of occurrence of the external cause; Y99.8 Other external cause status
CPT/HCPCS: 99283

== ENCOUNTER 2021-04-03 13:42 | Emergency (ER) | payer OTHER ==
[2021-04-03 14:50] LABS: Bilirubin,Urine NEG (Negative); Blood,Urine LG (Negative); Color,Urine Yellow (Yellow); HCG Qualitative,Urine Positive (Negative); Mucus,Urine 3+ /HPF
--- NOTE | 2021-04-03 15:53 | Emergency Department Report ---
<CARMENCITA CASE - Last Filed: 04/03/21 20:02> ED HPI - General Chief complaint: Vaginal Bleeding Stated complaint: POSS MISCARRIAGE Time Seen by Provider: 04/03/21 14:13 - Related Data Previous Rx's Medication Instructions Recorded Last Taken Type Ondansetron [Zofran Odt] 4 mg PO BID PRN #6 tab.rapdis 10/10/16 Unknown Rx Phenazopyridine [Pyridium] 100 mg PO TID #9 tab 10/10/16 Unknown Rx Diphenhydramine HCl [Benadryl GEL] 1 applicatio TP QID PRN #1 bottle 03/19/18 Unknown Rx Metoclopramide [Reglan] 10 mg PO TID PRN 7 Days #28 tab 03/19/18 Unknown Rx cephALEXin [Keflex] 500 mg PO TID #30 capsule 03/19/18 Unknown Rx diphenhydrAMINE [Benadryl CAP] 25 mg PO Q6HR PRN #30 capsule 03/19/18 Unknown Rx predniSONE [Deltasone] 40 mg PO QDAY 5 Days #10 tab 03/19/18 Unknown Rx Ondansetron [Zofran Odt] 4 mg PO Q6HR #15 tab.rapdis 08/19/19 Unknown Rx HYDROcodone/APAP 5-325 [[place] 1 each PO Q6HR PRN #10 tablet 04/05/21 Unknown Rx 5/325] Allergies Allergy/AdvReac Type Severity Reaction Status Date / Time No Known Allergies Allergy Verified 04/03/21 13:56 ED Past Medical Hx - Medications Home Medications: Home Medications Medication Instructions Recorded Confirmed Last Taken Type Ondansetron [Zofran Odt] 4 mg PO BID PRN #6 tab.rapdis 10/10/16 Unknown Rx Phenazopyridine [Pyridium] 100 mg PO TID #9 tab 10/10/16 Unknown Rx Diphenhydramine HCl [Benadryl GEL] 1 applicatio TP QID PRN #1 bottle 03/19/18 Unknown Rx Metoclopramide [Reglan] 10 mg PO TID PRN 7 Days #28 tab 03/19/18 Unknown Rx cephALEXin [Keflex] 500 mg PO TID #30 capsule 03/19/18 Unknown Rx diphenhydrAMINE [Benadryl CAP] 25 mg PO Q6HR PRN #30 capsule 03/19/18 Unknown Rx predniSONE [Deltasone] 40 mg PO QDAY 5 Days #10 tab 03/19/18 Unknown Rx Ondansetron [Zofran Odt] 4 mg PO Q6HR #15 tab.rapdis 08/19/19 Unknown Rx HYDROcodone/APAP 5-325 [[place] 1 each PO Q6HR PRN #10 tablet 04/05/21 Unknown Rx 5/325] ED Medical Decision Making - Lab Data Result diagrams: 04/03/21 16:02 04/03/21 16:02 - Radiology Data Radiology results: report reviewed Patient: BRANDIN HANNA MR#: [id number] : 1985 Acct:[id number] Age/Sex: 35 / F ADM Date: 04/03/21 Loc: ED Attending Dr: Ordering Physician: ELIN PYLE Date of Service: 04/03/21 Procedure(s): US OB <= 14 weeks fetus Accession Number(s): [id number] cc: ELIN PYLE ULTRASOUND OBSTETRIC REASON FOR EXAM: Vaginal bleeding TECHNIQUE: Transabdominal and transvaginal ultrasound was performed to evaluate a first trimester . COMPARISON: None available. FINDINGS: Uterus measures 10.1 x 5.1 x 5.5 cm. Endometrial stripe measures 0.6 cm. There is no IUP visualized. Right ovary measures 4.2 x 2 x 2.8 cm, and the left ovary measures 2.6 x 1.3 x 1.3 cm. No significant ovarian cyst or mass. No significant free fluid. IMPRESSION: No IUP visualized. Findings are consistent with of unknown location. Given reported serum beta hCG of 5273 and nonvisualization of an IUP, these findings are concerning for spontaneous . Occult ectopic cannot be excluded. Recommend continued follow-up with beta hCG and sonography, as clinically indicated. Signer Name: Hector Taveras MD Signed: 04/03/2021 7:00 PM Workstation Name: [id number] Transcribed By: YAQUELIN Dictated By: HECTOR TAVERAS MD Electronically Authenticated By: HECTOR TAVERAS MD Signed Date/Time: 04/03/21 190 DD/ 54 TD/TT: - Medical Decision Making 2002: Patient currently resting comfortably in the room. She reports that her pain is better. Repeat abdominal exam shows a soft nontender abdomen. She is currently not toxic or ill-appearing. She is neurologically intact. Ultrasound showsNo IUP visualized. Findings are consistent with of unknown location. Given reported serum beta hCG of 5273 and nonvisualization of an IUP, these findings are concerning for spontaneous . Occult ectopic cannot be excluded. Recommend continued follow-up with beta hCG and sonography, as clinically indicated. Discussed ultrasound results with patient. Given that patient is hemodynamically intact and not currently having pain with a nonsurgical abdominal exam patient will be discharged, but patient given instructions to return in the next 2 days for repeat quant hCG and possible ultrasound if she is unable to follow-up with [facility] in the next 2 days. Informed patient that if at any point her low abdominal pain becomes significantly worse especially if it becomes one-sided, and she starts having worsening bleeding with clots and feeling dizzy with syncopal or near syncopal episodes need to return immediately to the ER. Patient expressed understanding of all instructions and agree with plan. Patient stable at time of discharge. ED Disposition Clinical Impression: Threatened miscarriage Disposition: 01 HOME / SELF CARE / HOMELESS Is pt being admited?: No Does the pt Need Aspirin: No Condition: Stable Instructions: Threatened Miscarriage, [id number] Additional Instructions: Return to the ER in 2 days for repeat quant hCG and ultrasound if you are unable to follow-up with your [facility] in the next 2 days. You can take Tylenol as needed for pain. If at any point your lower abdominal pain worsens significantly especially if it is 1 side, return immediately to the ER as discussed. Referrals: [facility] [Provider Group] - 04/05/21 Forms: Work/School Release Form(ED) Time of Disposition: 20:07 <BAKARI MANCILLA - Last Filed: 04/06/21 19:37> ED HPI - General Source: patient Mode of arrival: Ambulatory Limitations: No Limitations - History of Present Illness Initial comments: The patient was evaluated in the emergency department for symptoms described in the history of present illness. He/she was evaluated in the context of the global COVID-19 pandemic, which necessitated consideration that the patient might be at risk for infection with the virus that causes COVID-19. Institutional protocols and algorithms that pertain to the evaluation of patient s at risk for COVID-19 are in a state of rapid change based on information released by regulatory bodies including the CDC and federal and state organizations. These policies and algorithms were followed during the patient's care in the emergency department. Please note that these policies, procedures and recommendations changed on a rapid basis. 35-year-old -Swedish female states that she is approximately 7 to 8 weeks presents to the emergency room complaining of pain since starting and bleeding since yesterday. She states that she had passed some tissue. She does admit to nausea vomiting and diarrhea for the last 2 days. She last vomited this morning. She complains of intermittent pelvic cramping. She is 4 para 3 with her last menstrual period February 02, 2021. She is not currently under [facility] care but plans to start seeing [facility]. She denies any complications with her other but last was 9 years ago. She did states she had hypertension and delivered . MD Complaint: abdominal pain, vaginal bleeding Onset/Timin -: days(s) Location: pelvis Radiation: suprapubic Severity: moderate Quality: cramping Consistency: intermittent Improves with: none Worsens with: none Associated symptoms: nausea/vomiting, vaginal bleeding, other (Diarrhea) Vaginal bleeding: light :: Yes Number of weeks : 8 OB History - Current : no complications OB History - Previous Pregnancies: eclampsia Last menstrual period: 02/02/21 - Related Data : 4 Para: 3 ED Review of Systems ROS: Stated complaint: POSS MISCARRIAGE Other details as noted in HPI Comment: All other systems reviewed and negative ED Past Medical Hx - Surgical History Additional Surgical History: - Social History Smoking Status: Never Smoker Substance Use Type: Alcohol ED Physical Exam - General Limitations: No Limitations General appearance: alert, in no apparent distress - Head Head exam: Present: atraumatic, normocephalic - Eye Eye exam: Present: normal appearance - ENT ENT exam: Present: mucous membranes moist - Neck Neck exam: Present: normal inspection - Respiratory Respiratory exam: Present: normal lung sounds bilaterally. Absent: respiratory distress - Cardiovascular Cardiovascular Exam: Present: regular rate, normal rhythm. Absent: systolic murmur, diastolic murmur, rubs, gallop - GI/Abdominal GI/Abdominal exam: Present: soft, tenderness (Suprapubic deep palpation), normal bowel sounds. Absent: distended - Extremities Exam Extremities exam: Present: normal inspection - Back Exam Back exam: Present: normal inspection - Neurological Exam Neurological exam: Present: alert, oriented X3 - Psychiatric Psychiatric exam: Present: normal affect, normal mood - Skin Skin exam: Present: warm, dry, intact, normal color. Absent: rash ED Course Vital Signs 04/03/21 04/03/21 04/03/21 13:56 15:24 15:25 Temperature 98.4 F 98.4 F Pulse Rate 93 H 70 Respiratory 18 18 18 Rate Blood Pressure 140/86 Blood Pressure 142/92 [Left] O2 Sat by Pulse 99 100 100 Oximetry 04/03/21 20:16 Temperature Pulse Rate 80 Respiratory 18 Rate Blood Pressure Blood Pressure 112/82 [Left] O2 Sat by Pulse 99 Oximetry ED Medical Decision Making - Lab Data Result diagrams: 04/03/21 16:02 04/03/21 16:02 - Medical Decision Making 35-year-old -Swedish female states that she is approximately 7 to 8 weeks presents to the emergency room complaining of pain since starting and bleeding since yesterday. She states that she had passed some tissue. She does admit to nausea vomiting and diarrhea for the last 2 days. She last vomited this morning. She complains of intermittent pelvic cramping. She is 4 para 3 with her last menstrual period February 02, 2021. She is not currently under [facility] care but plans to start seeing [facility]. She denies any complications with her other but last was 9 years ago. She did states she had hypertension and delivered . CBC CMP ED RhoGam, hCG serum urinalysis ultrasound The patient's care has been transferred to and accepted by[ Ilana Case PA-C }. We discussed: The patient's chief complaints; labs and imaging that have been completed and those that are still pending; any treatment provided and the patient's response to treatment; any significant change in condition; the treatment plan prior to the transfer of care. The accepting provider will follow up on all pending labs and imaging and make any necessary changes to the current impression and/or treatment plan. The accepting physician/midlevel is now responsible for the patient's care and final disposition. Critical care attestation.: If time is entered above; I have spent that time in minutes in the direct care of this critically ill patient, excluding procedure time.
[2021-04-03 16:17] LABS: Hematocrit 38.3 % (30.3-42.9); Hemoglobin 12.7 gm/dl (10.1-14.3); Mean Corpuscular HGB Conc 33 % (30-34); Mean Corpuscular Volume 88 fl (79-97); Platelet Count 244 K/mm3 (140-440); Red Blood Count 4.33 M/mm3 (3.65-5.03); Red Cell Distribution Width 13.1 % (13.2-15.2)
[2021-04-03 16:39] LABS: BUN/Creatinine Ratio 13; Blood Urea Nitrogen 10 mg/dL (7-17); Calcium 9.5 mg/dL (8.4-10.2); Hemolysis Index 10
--- NOTE | 2021-04-03 19:04 | Ultrasound Report ---
ULTRASOUND OBSTETRIC REASON FOR EXAM: Vaginal bleeding TECHNIQUE: Transabdominal and transvaginal ultrasound was performed to evaluate a first trimester pre gnancy. COMPARISON: None available. FINDINGS: Uterus measures 10.1 x 5.1 x 5.5 cm. Endometrial stripe measures 0.6 cm. There is no IUP visualized. Right ovary measures 4.2 x 2 x 2.8 cm, and the left ovary measures 2.6 x 1.3 x 1.3 cm. No significant ovarian cyst or mass. No significant free fluid. IMPRESSION: No IUP visualized. Findings are consistent with of unknown location. Given reported serum b eta hCG of 5273 and nonvisualization of an IUP, these findings are concerning for spontaneous abortio n. Occult ectopic cannot be excluded. Recommend continued follow-up with beta hCG and sonog juan jose, as clinically indicated. Signer Name: Brennan Taveras MD Signed: 04/03/2021 7:00 PM Workstation Name: [id number]
[2021-04-03 20:16] VITALS: BP 112/82
== END 2021-04-03 20:15 | disposition home or self-care (01) ==
LOC: ED 13:42
DX: O20.0 Threatened abortion (principal); Z3A.00 Weeks of gestation of pregnancy not specified
CPT/HCPCS: 36415; 76801; 76817; 80048; 81001; 81025; 84702; 85027; 86900; 86901; 99284

== ENCOUNTER 2021-04-05 10:52 | Emergency (ER) | payer OTHER ==
[2021-04-05 13:04] LABS: Basophils % (Auto) 0.7 % (0.0-1.8); Eosinophils # (Auto) 0.2 K/mm3 (0.0-0.4); Eosinophils % (Auto) 4.1 % (0.0-4.3); Hematocrit 37.2 % (30.3-42.9); Hemoglobin 12.6 gm/dl (10.1-14.3); Lymphocytes # (Auto) 2.2 K/mm3 (1.2-5.4); Mean Corpuscular HGB Conc 34 % (30-34); Mean Corpuscular Volume 89 fl (79-97); Monocytes # (Auto) 0.4 K/mm3 (0.0-0.8); Platelet Count 199 K/mm3 (140-440); Red Blood Count 4.17 M/mm3 (3.65-5.03); Red Cell Distribution Width 13.3 % (13.2-15.2)
[2021-04-05 13:26] LABS: BUN/Creatinine Ratio 16; Blood Urea Nitrogen 13 mg/dL (7-17); Calcium 9.1 mg/dL (8.4-10.2); Hemolysis Index 13
--- NOTE | 2021-04-05 13:34 | Emergency Department Report ---
HPI - General Chief Complaint: Vaginal Bleeding Time Seen by Provider: 04/05/21 12:24 - HPI HPI: This is a 35-year-old -[place] female presents to the emergency department with a complaint of pelvic cramping and vaginal bleeding while . She is about 7 to 8 weeks and the cramping and bleeding has been going on for the past 3 days. The patient was seen in our emergency department 2 days ago, on 04/03, and had a beta-hCG of 5200. She had a ultrasound done that did not show any evidence of intrauterine . The rest of the blood work at that time was unremarkable. The patient was discharged home to follow-up with [facility] for a repeat beta-hCG and possibly ultrasound, but was also told to return to the emergency department if she was unable to get an expedient appointment with her [facility]. The patient says that she was unable to get this appointment and therefore his return to the emergency department for further ev aluation of this continued pelvic cramping and vaginal bleeding. ED Past Medical Hx - Surgical History Past Surgical History?: Yes Additional Surgical History: - Social History Smoking Status: Current Some Day Smoker Substance Use Type: None - Medications Home Medications: Home Medications Medication Instructions Recorded Confirmed Last Taken Type Ondansetron [Zofran Odt] 4 mg PO BID PRN #6 tab.rapdis 10/10/16 Unknown Rx Phenazopyridine [Pyridium] 100 mg PO TID #9 tab 10/10/16 Unknown Rx Diphenhydramine HCl [Benadryl GEL] 1 applicatio TP QID PRN #1 bottle 03/19/18 Unknown Rx Metoclopramide [Reglan] 10 mg PO TID PRN 7 Days #28 tab 03/19/18 Unknown Rx cephALEXin [Keflex] 500 mg PO TID #30 capsule 03/19/18 Unknown Rx diphenhydrAMINE [Benadryl CAP] 25 mg PO Q6HR PRN #30 capsule 03/19/18 Unknown Rx predniSONE [Deltasone] 40 mg PO QDAY 5 Days #10 tab 03/19/18 Unknown Rx Ondansetron [Zofran Odt] 4 mg PO Q6HR #15 tab.rapdis 08/19/19 Unknown Rx HYDROcodone/APAP 5-325 [Gray 1 each PO Q6HR PRN #10 tablet 04/05/21 Unknown Rx 5/325] ED Review of Systems ROS: Stated complaint: FOLLOW UP Other details as noted in HPI Comment: All other systems reviewed and negative Constitutional: denies: chills, fever Eyes: denies: eye pain, vision change ENT: denies: ear pain, throat pain Respiratory: denies: cough, shortness of breath Cardiovascular: denies: chest pain, palpitations Gastrointestinal: denies: abdominal pain, vomiting Genitourinary: other (Pelvic cramping, vaginal bleeding). denies: dysuria, disc harge Musculoskeletal: denies: back pain, arthralgia Skin: denies: rash, lesions Neurological: denies: headache, weakness Physical Exam - Physical Exam Physical Exam: GENERAL: The patient is well-developed well-nourished. HENT: Normocephalic. Atraumatic. Patient has moist mucous membranes. EYES: Extraocular motions are intact. NECK: Supple. Trachea is midline. CHEST/LUNGS: Clear to auscultation. There is no respiratory distress noted. HEART/CARDIOVASCULAR: Regular. There is no tachycardia. There is no murmur. ABDOMEN: Abdomen is soft, nontender. Patient has normal bowel sounds. SKIN: Skin is warm and dry. NEURO: The patient is awake, alert, and oriented. The patient is cooperative. Normal speech. MUSCULOSKELETAL: There is no tenderness or deformity. There is no limitation range of motion. ED Medical Decision Making - Lab Data Result diagrams: 04/05/21 12:32 04/05/21 12:32 - Radiology Data ULTRASOUND OBSTETRIC REASON FOR EXAM: , vag bleeding. Rising hCG TECHNIQUE: Transabdominal and transvaginal ultrasound was performed to evaluate a first trimester . COMPARISON: 04/03/2021 FINDINGS: Uterus measures 10.9 x 4.6 x 5.7 cm. Endometrial stripe measures 1.2 cm. No IUP is identified. Right ovary measures 4.4 x 2.5 x 4.4 cm. 3.1 cm thick-walled somewhat crenated complex structure is located along the margin of the right ovary. It is difficult to determine if this is within the right ovary or immediately adjacent to the ovary. Right adnexal ectopic cannot be excluded. There is an additional 2.2 cm hypoechoic structure which is located within the right ovary and is not suspicious. IMPRESSION: No IUP visualized. 3.1 cm complex structure in the right adnexa is located along the margin of the right ovary. It is difficult to determine if this is within the right ovary or immediately adjacent to it. Right adnexal ectopic is unable to be excluded. [facility] consultation is recommended. - Medical Decision Making This patient returns to the emergency department for further evaluation of recent pelvic cramping and vaginal bleeding while . She had a beta-hCG of about 5200 when she was seen here 2 days ago. She also had an ultrasound at that time that did not show any evidence of intrauterine . The patient's beta hCG today is about 6200. She has been sent for a repeat ultrasound to once again reevaluate her with this rising beta hCG. The rest of her labs have been unremarkable including CBC, metabolic panel. My shift is ending and this patient has been signed out to, and transfer accepted by, my colleague Dr Phillips. He will follow up on the results of the ultrasound, and will assist with disposition. Critical Care Time: No Critical care attestation.: If time is entered above; I have spent that time in minutes in the direct care of this critically ill patient, excluding procedure time. ED Disposition Clinical Impression: Abdominal pain affecting Ectopic , tubal Qualifiers: Intrauterine status: without intrauterine Laterality: right Qualified Code(s): O00.101 - Right tubal without intrauterine Disposition: HOME / SELF CARE / HOMELESS Is pt being admited?: No Condition: Stable Instructions: Methotrexate Treatment for an Ectopic , Care After, Ectopic , Abdominal Pain During , [id number] Additional Instructions: Drink plenty water. Use Tylenol for fever. Return if you develop fever, significant pain, heavy vaginal bleeding, soaking more than 3 pads in an hour, dizziness or lightheadedness, or any other concerns. Follow-up with gynecology on April 08 and April 11 for recheck and repeat evaluation with blood work. If you cannot see the buffing wheel raker on those 2 days, return to the ED. Prescriptions: HYDROcodone/APAP 5-325 [Gray 5/325] 1 each PO Q6HR PRN #10 tablet PRN Reason: Pain Referrals: UZIEL KITCHEN MD [Staff Physician] - 3-5 Days RICARDO BENITEZ MD [Staff Physician] - 04/08/21 PRIMARY CARE, [Primary Care Provider] - 3-5 Days Forms: Work/School Release Form(ED)
--- NOTE | 2021-04-05 16:40 | Emergency Department Report ---
Blank Doc - Documentation Documentation: I had assumed care from Dr. Ghosh. Ultrasound was pending. At this time, nirmala benitez has been discussed with the radiologist. Patient has been updated. PROTOTYPE ENGINEER is paged. Labs have been reviewed. 1705-Case was discussed with gynecology on-call, Dr. Neri. It is her recommendation that the patient undergo methotrexate therapy. This was discussed at length with the patient. All questions were answered. We have discussed the risks, benefits, and alternatives for this. Patient is aware that she will need follow-up on days 4 and 7. She is able to verbalize understanding. We will proceed with methotrexate administration once LFTs have returned. 1810-LFTs were noted. Case was discussed with the patient again as well as her significant other. We have discussed the potential risks, benefits, and alternatives for current recommendations with methotrexate. All questions were answered. The patient and her family have decided to utilize methotrexate.
--- NOTE | 2021-04-05 16:45 | Ultrasound Report ---
ULTRASOUND OBSTETRIC REASON FOR EXAM: , vag bleeding. Rising hCG TECHNIQUE: Transabdominal and transvaginal ultrasound was performed to evaluate a first trimester pre gnancy. COMPARISON: 04/03/2021 FINDINGS: Uterus measures 10.9 x 4.6 x 5.7 cm. Endometrial stripe measures 1.2 cm. No IUP is identified. Right ovary measures 4.4 x 2.5 x 4.4 cm. 3.1 cm thick-walled somewhat crenated complex structure is l ocated along the margin of the right ovary. It is difficult to determine if this is within the right ovary or immediately adjacent to the ovary. Right adnexal ectopic cannot be excluded. There is an add itional 2.2 cm hypoechoic structure which is located within the right ovary and is not suspicious. IMPRESSION: No IUP visualized. 3.1 cm complex structure in the right adnexa is located along the margin of the ri ght ovary. It is difficult to determine if this is within the right ovary or immediately adjacent to it. Right adnexal ectopic is unable to be excluded. QUALITY REVIEWER consultation is recommended. Findings were discussed with ordering provider by phone on 04/05/2021 at 3:40 PM. Signer Name: Brennan Taveras MD Signed: 04/05/2021 4:40 PM Workstation Name: [email or web address]
--- NOTE | 2021-04-05 16:45 | Ultrasound Report ---
ULTRASOUND OBSTETRIC REASON FOR EXAM: , vag bleeding. Rising hCG TECHNIQUE: Transabdominal and transvaginal ultrasound was performed to evaluate a first trimester pre gnancy. COMPARISON: 04/03/2021 FINDINGS: Uterus measures 10.9 x 4.6 x 5.7 cm. Endometrial stripe measures 1.2 cm. No IUP is identified. Right ovary measures 4.4 x 2.5 x 4.4 cm. 3.1 cm thick-walled somewhat crenated complex structure is l ocated along the margin of the right ovary. It is difficult to determine if this is within the right ovary or immediately adjacent to the ovary. Right adnexal ectopic cannot be excluded. There is an add itional 2.2 cm hypoechoic structure which is located within the right ovary and is not suspicious. IMPRESSION: No IUP visualized. 3.1 cm complex structure in the right adnexa is located along the margin of the ri ght ovary. It is difficult to determine if this is within the right ovary or immediately adjacent to it. Right adnexal ectopic is unable to be excluded. LOOM BLOWER consultation is recommended. Findings were discussed with ordering provider by phone on 04/05/2021 at 3:40 PM. Signer Name: Brennan Taveras MD Signed: 04/05/2021 4:40 PM Workstation Name: [id number]
[2021-04-05 17:11] LABS: Alanine Aminotransferase 9 units/L (7-56); Albumin 3.8 g/dL (3.9-5)
[2021-04-05 17:13] LABS: Bilirubin,Direct < 0.2 mg/dL (0-0.2)
[2021-04-05 19:17] VITALS: BP 130/86
== END 2021-04-05 19:17 | disposition home or self-care (01) ==
LOC: ED 10:52
DX: O26.891 Other specified pregnancy related conditions, first trimester (principal); R10.30 Lower abdominal pain, unspecified; O00.101 Right tubal pregnancy without intrauterine pregnancy; F17.200 Nicotine dependence, unspecified, uncomplicated; Z3A.01 Less than 8 weeks gestation of pregnancy
CPT/HCPCS: 36415; 76801; 76830; 80048; 80076; 84702; 85025; 96372; 99284; J9260

== ENCOUNTER 2021-04-08 14:51 | Emergency (ER) | payer OTHER ==
[2021-04-08 18:58] LABS: Basophils # (Auto) 0.1 K/mm3 (0.0-0.1); Eosinophils # (Auto) 0.2 K/mm3 (0.0-0.4); Eosinophils % (Auto) 2.9 % (0.0-4.3); Hematocrit 36.9 % (30.3-42.9); Hemoglobin 12.4 gm/dl (10.1-14.3); Lymphocytes # (Auto) 3.5 K/mm3 (1.2-5.4); Lymphocytes % (Auto) 44.2 % (13.4-35.0); Mean Corpuscular HGB Conc 34 % (30-34); Mean Corpuscular Volume 89 fl (79-97); Monocytes # (Auto) 0.2 K/mm3 (0.0-0.8); Monocytes % (Auto) 2.5 % (0.0-7.3); Platelet Count 254 K/mm3 (140-440); Red Blood Count 4.14 M/mm3 (3.65-5.03)
--- NOTE | 2021-04-08 19:37 | Emergency Department Report ---
ED General Adult HPI - General Chief complaint: Abdominal Pain Stated complaint: FOLLOW UP/MISCARRAGE Time Seen by Provider: 04/08/21 18:17 Source: patient Mode of arrival: Ambulatory Limitations: No Limitations - History of Present Illness Initial comments: Patient is a 35-year-old female presents emergency room for follow-up of her hCG quant. Patient recently diagnosed with possible ectopic and was administered methotrexate. He states that she was advised to follow-up on day 4 and day 7 to have a repeat of her hCG quant. She has not yet followed up with her [employer] so she presents to the emergency room for follow-up. She states that she has had some mild lower abdominal cramping and has been feeling lower abdominal pressure. She states that she is also having some spotting. She denies any heavy bleeding or passing clots. No past medical history. No allergies to medications. Last menstrual cycle 02/02/2021. - Related Data Previous Rx's Medication Instructions Recorded Last Taken Type Ondansetron [Zofran Odt] 4 mg PO BID PRN #6 tab.rapdis 10/10/16 Unknown Rx Phenazopyridine [Pyridium] 100 mg PO TID #9 tab 10/10/16 Unknown Rx Diphenhydramine HCl [Benadryl GEL] 1 applicatio TP QID PRN #1 bottle 03/19/18 Unknown Rx Metoclopramide [Reglan] 10 mg PO TID PRN 7 Days #28 tab 03/19/18 Unknown Rx cephALEXin [Keflex] 500 mg PO TID #30 capsule 03/19/18 Unknown Rx diphenhydrAMINE [Benadryl CAP] 25 mg PO Q6HR PRN #30 capsule 03/19/18 Unknown Rx predniSONE [Deltasone] 40 mg PO QDAY 5 Days #10 tab 03/19/18 Unknown Rx Ondansetron [Zofran Odt] 4 mg PO Q6HR #15 tab.rapdis 08/19/19 Unknown Rx HYDROcodone/APAP 5-325 [[place] 1 each PO Q6HR PRN #10 tablet 04/05/21 Unknown Rx 5/325] Allergies Allergy/AdvReac Type Severity Reaction Status Date / Time No Known Allergies Allergy Verified 04/03/21 13:56 ED Review of Systems ROS: Stated complaint: FOLLOW UP/MISCARRAGE Other details as noted in HPI Comment: All other systems reviewed and negative ED Past Medical Hx - Surgical History Additional Surgical History: - Social History Smoking Status: Current Some Day Smoker - Medications Home Medications: Home Medications Medication Instructions Recorded Confirmed Last Taken Type Ondansetron [Zofran Odt] 4 mg PO BID PRN #6 tab.rapdis 10/10/16 Unknown Rx Phenazopyridine [Pyridium] 100 mg PO TID #9 tab 10/10/16 Unknown Rx Diphenhydramine HCl [Benadryl GEL] 1 applicatio TP QID PRN #1 bottle 03/19/18 Unknown Rx Metoclopramide [Reglan] 10 mg PO TID PRN 7 Days #28 tab 03/19/18 Unknown Rx cephALEXin [Keflex] 500 mg PO TID #30 capsule 03/19/18 Unknown Rx diphenhydrAMINE [Benadryl CAP] 25 mg PO Q6HR PRN #30 capsule 03/19/18 Unknown Rx predniSONE [Deltasone] 40 mg PO QDAY 5 Days #10 tab 03/19/18 Unknown Rx Ondansetron [Zofran Odt] 4 mg PO Q6HR #15 tab.rapdis 08/19/19 Unknown Rx HYDROcodone/APAP 5-325 [[place] 1 each PO Q6HR PRN #10 tablet 04/05/21 Unknown Rx 5/325] ED Physical Exam - General Limitations: No Limitations General appearance: alert, in no apparent distress - Head Head exam: Present: atraumatic, normocephalic - Eye Eye exam: Present: normal appearance - ENT ENT exam: Present: mucous membranes moist - Respiratory Respiratory exam: Present: normal lung sounds bilaterally. Absent: respiratory distress, wheezes, rales, rhonchi, stridor, chest wall tenderness, accessory muscle use, decreased breath sounds, prolonged expiratory - Cardiovascular Cardiovascular Exam: Present: regular rate, normal rhythm, normal heart sounds. Absent: systolic murmur, diastolic murmur, rubs, gallop - GI/Abdominal GI/Abdominal exam: Present: soft, normal bowel sounds. Absent: distended, tenderness, guarding, rebound, rigid - Neurological Exam Neurological exam: Present: alert, oriented X3 - Psychiatric Psychiatric exam: Present: normal affect, normal mood - Skin Skin exam: Present: warm, dry, intact ED Course Vital Signs 04/08/21 04/08/21 17:47 20:01 Temperature 98.1 F 98.5 F Pulse Rate 76 70 Respiratory 18 Rate Blood Pressure 117/83 Blood Pressure 137/61 [Right] O2 Sat by Pulse 100 100 Oximetry ED Medical Decision Making - Lab Data Result diagrams: 04/08/21 18:32 - Medical Decision Making Patient is a 35-year-old female presents emergency room for follow-up of her hCG quant. Patient recently diagnosed with possible ectopic and was administered methotrexate. He states that she was advised to follow-up on day 4 and day 7 to have a repeat of her hCG quant. She has not yet followed up with her [employer] so she presents to the emergency room for follow-up. She states that she has had some mild lower abdominal cramping and has been feeling lower abdominal pressure. She states that she is also having some spotting. She denies any heavy bleeding or passing clots. No past medical history. No allergies to medications. Last menstrual cycle 02/02/2021. Vitals are normal. No abdominal tenderness on exam. H&H is normal. hCG quant has decreased from 6217 to 5760. Discussed findings with patient. Discussed the importance of follow-up. Discussed return precautions. Advised patient you will need to follow-up on day 7 from when your methotrexate was administered to continue to watch your hCG quant. Please follow-up with your [employer]. Return to emergency room immediately for any new or worsening symptoms. Critical care attestation.: If time is entered above; I have spent that time in minutes in the direct care of this critically ill patient, excluding procedure time. ED Disposition Clinical Impression: Ectopic , tubal Qualifiers: Intrauterine status: without intrauterine Laterality: right Qualified Code(s): O00.101 - Right tubal without intrauterine Disposition: HOME / SELF CARE / HOMELESS Is pt being admited?: No Does the pt Need Aspirin: No Condition: Stable Instructions: Methotrexate Treatment for an Ectopic , Care After, Abdominal Pain (ED) Additional Instructions: you will need to follow-up on day 7 from when your methotrexate was administered to continue to watch your hCG quant. Please follow-up with your [employer]. Return to emergency room immediately for any new or worsening symptoms. Referrals: [facility] [Provider Group] - 2-3 Days Forms: Work/School Release Form(ED) Time of Disposition: 19:39 Print Language: SLOVENIAN
[2021-04-08 20:04] VITALS: BP 137/61
== END 2021-04-08 20:04 | disposition home or self-care (01) ==
LOC: ED 14:51
DX: O00.80 Other ectopic pregnancy without intrauterine pregnancy (principal); F17.200 Nicotine dependence, unspecified, uncomplicated
CPT/HCPCS: 36415; 84702; 85025; 99283

== ENCOUNTER 2021-04-18 15:38 | Emergency (ER) | payer OTHER ==
[2021-04-18 17:30] LABS: Alanine Aminotransferase 12 units/L (7-56); Albumin 4.2 g/dL (3.9-5); Blood Urea Nitrogen 9 mg/dL (7-17); Calcium 9.6 mg/dL (8.4-10.2); Hemolysis Index 8
[2021-04-18 17:33] LABS: BUN/Creatinine Ratio 13
[2021-04-18 17:39] LABS: Basophils # (Auto) 0.1 K/mm3 (0.0-0.1); Basophils % (Auto) 1.4 % (0.0-1.8); Eosinophils # (Auto) 0.3 K/mm3 (0.0-0.4); Eosinophils % (Auto) 3.2 % (0.0-4.3); Hematocrit 35.5 % (30.3-42.9); Hemoglobin 11.8 gm/dl (10.1-14.3); Lymphocytes # (Auto) 2.8 K/mm3 (1.2-5.4); Lymphocytes % (Auto) 35.1 % (13.4-35.0); Mean Corpuscular HGB Conc 33 % (30-34); Mean Corpuscular Volume 89 fl (79-97); Monocytes # (Auto) 0.8 K/mm3 (0.0-0.8); Monocytes % (Auto) 10.1 % (0.0-7.3); Platelet Count 247 K/mm3 (140-440); Red Blood Count 3.99 M/mm3 (3.65-5.03); Red Cell Distribution Width 13.1 % (13.2-15.2)
--- NOTE | 2021-04-18 17:51 | Emergency Department Report ---
ED Recheck HPI - General Chief Complaint: Recheck/Abnormal Lab/Rx Stated Complaint: PT SENT FOR 2ND DOSE OF METHOTREXATE Time Seen by Provider: 04/18/21 16:40 Source: patient Mode of arrival: Ambulatory Limitations: No Limitations - History of Present Illness Initial Comments: Patient is a 35-year-old female presents the emergency room sent in by [facility] [facility] with a prescription to receive a second dose of methotrexate for ectopic . Patient states that she had a repeat ultrasound performed by [facility] earlier this week and reports that she still has a ectopic and her quant was not decreasing at the rate that they wanted to do so therefore they sent her to the emergency room for a second dose of methotrexate. Patient states that she is still continuing to have cramping and bleeding. She denies any heavy bleeding or passing clots or fever. No other past medical history. No allergies medications. - Related Data Previous Rx's Medication Instructions Recorded Last Taken Type Ondansetron [Zofran Odt] 4 mg PO BID PRN #6 tab.rapdis 10/10/16 Unknown Rx Phenazopyridine [Pyridium] 100 mg PO TID #9 tab 10/10/16 Unknown Rx Diphenhydramine HCl [Benadryl GEL] 1 applicatio TP QID PRN #1 bottle 03/19/18 Unknown Rx Metoclopramide [Reglan] 10 mg PO TID PRN 7 Days #28 tab 03/19/18 Unknown Rx cephALEXin [Keflex] 500 mg PO TID #30 capsule 03/19/18 Unknown Rx diphenhydrAMINE [Benadryl CAP] 25 mg PO Q6HR PRN #30 capsule 03/19/18 Unknown Rx predniSONE [Deltasone] 40 mg PO QDAY 5 Days #10 tab 03/19/18 Unknown Rx Ondansetron [Zofran Odt] 4 mg PO Q6HR #15 tab.rapdis 08/19/19 Unknown Rx HYDROcodone/APAP 5-325 [[place] 1 each PO Q6HR PRN #10 tablet 04/05/21 Unknown Rx 5/325] Naproxen 375 mg PO BID PRN #14 tablet 04/18/21 Unknown Rx traMADoL [Ultram 50 MG tab] 50 mg PO Q6HR PRN #10 tablet 04/18/21 Unknown Rx Allergies Allergy/AdvReac Type Severity Reaction Status Date / Time No Known Allergies Allergy Verified 04/18/21 15:40 ED Review of Systems ROS: Stated complaint: PT SENT FOR 2ND DOSE OF METHOTREXATE Other details as noted in HPI Comment: All other systems reviewed and negative ED Past Medical Hx - Past Medical History Additional medical history: ECTOPIC - Surgical History Additional Surgical History: - Social History Smoking Status: Current Some Day Smoker Substance Use Type: None - Medications Home Medications: Home Medications Medication Instructions Recorded Confirmed Last Taken Type Ondansetron [Zofran Odt] 4 mg PO BID PRN #6 tab.rapdis 10/10/16 Unknown Rx Phenazopyridine [Pyridium] 100 mg PO TID #9 tab 10/10/16 Unknown Rx Diphenhydramine HCl [Benadryl GEL] 1 applicatio TP QID PRN #1 bottle 03/19/18 Unknown Rx Metoclopramide [Reglan] 10 mg PO TID PRN 7 Days #28 tab 03/19/18 Unknown Rx cephALEXin [Keflex] 500 mg PO TID #30 capsule 03/19/18 Unknown Rx diphenhydrAMINE [Benadryl CAP] 25 mg PO Q6HR PRN #30 capsule 03/19/18 Unknown Rx predniSONE [Deltasone] 40 mg PO QDAY 5 Days #10 tab 03/19/18 Unknown Rx Ondansetron [Zofran Odt] 4 mg PO Q6HR #15 tab.rapdis 08/19/19 Unknown Rx HYDROcodone/APAP 5-325 [[place] 1 each PO Q6HR PRN #10 tablet 04/05/21 Unknown Rx 5/325] Naproxen 375 mg PO BID PRN #14 tablet 04/18/21 Unknown Rx traMADoL [Ultram 50 MG tab] 50 mg PO Q6HR PRN #10 tablet 04/18/21 Unknown Rx ED Physical Exam - General Limitations: No Limitations General appearance: alert, in no apparent distress - Head Head exam: Present: atraumatic, normocephalic - Eye Eye exam: Present: normal appearance - ENT ENT exam: Present: mucous membranes moist - Respiratory Respiratory exam: Present: normal lung sounds bilaterally. Absent: respiratory distress, wheezes, rales, rhonchi, stridor, chest wall tenderness, accessory muscle use, decreased breath sounds, prolonged expiratory - Cardiovascular Cardiovascular Exam: Present: regular rate, normal rhythm, normal heart sounds. Absent: systolic murmur, diastolic murmur, rubs, gallop - GI/Abdominal GI/Abdominal exam: Present: soft, normal bowel sounds. Absent: distended, tenderness, guarding, rebound, rigid - Neurological Exam Neurological exam: Present: alert, oriented X3 - Psychiatric Psychiatric exam: Present: normal affect, normal mood - Skin Skin exam: Present: warm, dry, intact, normal color ED Course Vital Signs 04/18/21 04/18/21 04/18/21 15:43 20:52 20:53 Temperature 98.7 F 98.5 F Pulse Rate 68 80 Respiratory 16 18 18 Rate Blood Pressure 112/68 Blood Pressure 130/70 [Right] O2 Sat by Pulse 100 100 100 Oximetry - Reevaluation(s) Reevaluation #1: 04/18/21 17:40 Patient's labs are stable, called pharmacy to dose methotrexate, they are looking into dosing ED Recheck MDM - Medical Decision Making Patient is a 35-year-old female presents the emergency room sent in by [facility] [facility] with a prescription to receive a second dose of methotrexate for ectopic . Patient states that she had a repeat ultrasound performed by [facility] earlier this week and reports that she still has a ectopic and her quant was not decreasing at the rate that they wanted to do so therefore they sent her to the emergency room for a second dose of methotrexate. Patient states that she is still continuing to have cramping and bleeding. She denies any heavy bleeding or passing clots or fever. No other past medical history. No allergies medications. Vitals are normal. No abdominal tenderness on exam. H&H is normal. LFTs are normal. hCG quant has decreased from previous. Discussed with pharmacy for appropriate dosing methotrexate. Patient given methotrexate and started to the emergency room without any complications. Advised patient Please take medication as prescribed as needed. you will need to have a repeat hCG quant in 3 days on 04/21, may return to the ER. Follow-up with your [employer]. Return to emergency room for any new or worsening symptoms. Critical care attestation.: If time is entered above; I have spent that time in minutes in the direct care of this critically ill patient, excluding procedure time. ED Disposition Clinical Impression: Ectopic Qualifiers: Location of ectopic : tubal Intrauterine status: without intrauterine Laterality: right Qualified Code(s): O00.101 - Right tubal without intrauterine Disposition: HOME / SELF CARE / HOMELESS Is pt being admited?: No Does the pt Need Aspirin: No Condition: Stable Instructions: Methotrexate Treatment for an Ectopic , Care After Additional Instructions: Please take medication as prescribed as needed. you will need to have a repeat hCG quant in 3 days on 04/21, may return to the ER. Follow-up with your [employer]. Return to emergency room for any new or worsening symptoms. Prescriptions: Naproxen 375 mg PO BID PRN #14 tablet PRN Reason: pain traMADoL [Ultram 50 MG tab] 50 mg PO Q6HR PRN #10 tablet PRN Reason: Pain , Severe (7-10) [facility] [Provider Group] - 3-5 Days Time of Disposition: 19:04 Print Language: CHADIAN
[2021-04-18 20:54] VITALS: BP 130/70
== END 2021-04-18 19:00 | disposition home or self-care (01) ==
LOC: ED 15:38
DX: O00.90 Unspecified ectopic pregnancy without intrauterine pregnancy (principal); F17.200 Nicotine dependence, unspecified, uncomplicated; Z98.890 Other specified postprocedural states; Z79.899 Other long term (current) drug therapy
CPT/HCPCS: 36415; 80053; 84702; 85025; 96372; 99283; J9260

== ENCOUNTER 2021-04-21 13:06 | Emergency (ER) | payer OTHER ==
[2021-04-21 14:18] LABS: Basophils # (Auto) 0.1 K/mm3 (0.0-0.1); Basophils % (Auto) 1.1 % (0.0-1.8); Eosinophils # (Auto) 0.1 K/mm3 (0.0-0.4); Eosinophils % (Auto) 1.9 % (0.0-4.3); Hematocrit 34.8 % (30.3-42.9); Hemoglobin 11.5 gm/dl (10.1-14.3); Lymphocytes # (Auto) 1.3 K/mm3 (1.2-5.4); Lymphocytes % (Auto) 21.2 % (13.4-35.0); Mean Corpuscular HGB Conc 33 % (30-34); Mean Corpuscular Volume 89 fl (79-97); Monocytes # (Auto) 0.2 K/mm3 (0.0-0.8); Monocytes % (Auto) 3.4 % (0.0-7.3); Platelet Count 252 K/mm3 (140-440); Red Blood Count 3.91 M/mm3 (3.65-5.03); Red Cell Distribution Width 13.3 % (13.2-15.2)
[2021-04-21 14:38] LABS: Alanine Aminotransferase 16 units/L (7-56); BUN/Creatinine Ratio 15; Blood Urea Nitrogen 12 mg/dL (7-17); Calcium 9.3 mg/dL (8.4-10.2); Hemolysis Index 4
--- NOTE | 2021-04-21 14:52 | Emergency Department Report ---
ED Recheck HPI - General Chief Complaint: Abdominal Pain Stated Complaint: FOLLOW UP ETOPIC Time Seen by Provider: 04/21/21 13:24 Source: patient Mode of arrival: Ambulatory Limitations: No Limitations - History of Present Illness Initial Comments: This is a 35-year-old female nontoxic, well nourished in appearance, no acute signs of distress presents to the ED for repeat HCG. Patient received second methotrexate in for ectopic and was told to come to the ER today for repeat quantitative test. Patient currently denies any abdominal pain, pelvic pain or vaginal bleeding. Patient stated all symptoms have subsided. Patient today she does see [facility]. Patient denies any abdominal or pelvic pain. Patient denies any vaginal discharge or foul odor. Patient denies any nausea, vomiting, chest pain, shortness of breathe, fever, chills, headache, stiff neck, numbness, tingling. Patient denies any urinary symptoms. Patient denies any allergies. Symptoms Since Prior Visit: no new symptoms, improved Associated Symptoms: none. denies: fever, chills, chest pain, shortness of breath, rash, malaise, [place], abdominal pain - Related Data Previous Rx's Medication Instructions Recorded Last Taken Type Ondansetron [Zofran Odt] 4 mg PO BID PRN #6 tab.rapdis 10/10/16 Unknown Rx Phenazopyridine [Pyridium] 100 mg PO TID #9 tab 10/10/16 Unknown Rx Diphenhydramine HCl [Benadryl GEL] 1 applicatio TP QID PRN #1 bottle 03/19/18 Unknown Rx Metoclopramide [Reglan] 10 mg PO TID PRN 7 Days #28 tab 03/19/18 Unknown Rx cephALEXin [Keflex] 500 mg PO TID #30 capsule 03/19/18 Unknown Rx diphenhydrAMINE [Benadryl CAP] 25 mg PO Q6HR PRN #30 capsule 03/19/18 Unknown Rx predniSONE [Deltasone] 40 mg PO QDAY 5 Days #10 tab 03/19/18 Unknown Rx Ondansetron [Zofran Odt] 4 mg PO Q6HR #15 tab.rapdis 08/19/19 Unknown Rx HYDROcodone/APAP 5-325 [[place] 1 each PO Q6HR PRN #10 tablet 04/05/21 Unknown Rx 5/325] Naproxen 375 mg PO BID PRN #14 tablet 04/18/21 Unknown Rx traMADoL [Ultram 50 MG tab] 50 mg PO Q6HR PRN #10 tablet 04/18/21 Unknown Rx Allergies Allergy/AdvReac Type Severity Reaction Status Date / Time No Known Allergies Allergy Verified 04/18/21 15:40 ED Review of Systems ROS: Stated complaint: FOLLOW UP ETOPIC Other details as noted in HPI Comment: All other systems reviewed and negative Constitutional: denies: chills, fever Eyes: denies: eye pain, eye discharge, vision change ENT: denies: ear pain, throat pain Respiratory: denies: cough, shortness of breath, wheezing Cardiovascular: denies: chest pain, palpitations Endocrine: no symptoms reported Gastrointestinal: denies: abdominal pain, nausea, diarrhea Genitourinary: denies: urgency, dysuria, discharge Musculoskeletal: denies: back pain, joint swelling, arthralgia Skin: denies: rash, lesions Neurological: denies: headache, weakness, paresthesias Psychiatric: denies: anxiety, depression Hematological/Lymphatic: denies: easy bleeding, easy bruising ED Past Medical Hx - Past Medical History Previous Medical History?: Yes Hx Hypertension: Yes Additional medical history: ECTOPIC - Surgical History Past Surgical History?: Yes Additional Surgical History: - Social History Smoking Status: Current Some Day Smoker Substance Use Type: None - Medications Home Medications: Home Medications Medication Instructions Recorded Confirmed Last Taken Type Ondansetron [Zofran Odt] 4 mg PO BID PRN #6 tab.rapdis 10/10/16 Unknown Rx Phenazopyridine [Pyridium] 100 mg PO TID #9 tab 10/10/16 Unknown Rx Diphenhydramine HCl [Benadryl GEL] 1 applicatio TP QID PRN #1 bottle 03/19/18 Unknown Rx Metoclopramide [Reglan] 10 mg PO TID PRN 7 Days #28 tab 03/19/18 Unknown Rx cephALEXin [Keflex] 500 mg PO TID #30 capsule 03/19/18 Unknown Rx diphenhydrAMINE [Benadryl CAP] 25 mg PO Q6HR PRN #30 capsule 03/19/18 Unknown Rx predniSONE [Deltasone] 40 mg PO QDAY 5 Days #10 tab 03/19/18 Unknown Rx Ondansetron [Zofran Odt] 4 mg PO Q6HR #15 tab.rapdis 08/19/19 Unknown Rx HYDROcodone/APAP 5-325 [[place] 1 each PO Q6HR PRN #10 tablet 04/05/21 Unknown Rx 5/325] Naproxen 375 mg PO BID PRN #14 tablet 04/18/21 Unknown Rx traMADoL [Ultram 50 MG tab] 50 mg PO Q6HR PRN #10 tablet 04/18/21 Unknown Rx ED Physical Exam - General Limitations: No Limitations General appearance: alert, in no apparent distress - Head Head exam: Present: atraumatic, normocephalic - Eye Eye exam: Present: normal appearance - Neck Neck exam: Present: normal inspection, full ROM. Absent: lymphadenopathy - Respiratory Respiratory exam: Absent: respiratory distress - Cardiovascular Cardiovascular Exam: Present: regular rate - GI/Abdominal GI/Abdominal exam: Present: soft, normal bowel sounds. Absent: distended, tenderness, guarding, rebound, rigid, diminished bowel sounds - Extremities Exam Extremities exam: Present: full ROM - Back Exam Back exam: Present: normal inspection, full ROM. Absent: tenderness, CVA tenderness (R), CVA tenderness (L), muscle spasm, paraspinal tenderness, vertebral tenderness, rash noted - Neurological Exam Neurological exam: Present: alert, oriented X3, normal gait - Psychiatric Psychiatric exam: Present: normal affect, normal mood - Skin Skin exam: Present: warm, dry, intact, normal color. Absent: rash ED Course Vital Signs 04/21/21 13:15 Temperature 99.1 F Pulse Rate 78 Respiratory 18 Rate Blood Pressure 118/68 [Right] O2 Sat by Pulse 99 Oximetry - Reevaluation(s) Reevaluation #1: 04/21/21 14:51 Patient is speaking in full sentences with no signs of distress noted. ED Recheck MDM - Medical Decision Making Lab Results 04/21/21 04/21/21 04/21/21 Range/Units 13:40 13:40 13:40 WBC 6.1 (4.5-11.0) K/mm3 RBC 3.91 (3.65-5.03) M/mm3 Hgb 11.5 (10.1-14.3) gm/dl Hct 34.8 (30.3-42.9) % MCV 89 (79-97) fl MCH 30 (28-32) pg MCHC 33 (30-34) % RDW 13.3 (13.2-15.2) % Plt Count 252 (140-440) K/mm3 Lymph % (Auto) 21.2 (13.4-35.0) % [place] % (Auto) 3.4 (0.0-7.3) % Eos % (Auto) 1.9 (0.0-4.3) % Baso % (Auto) 1.1 (0.0-1.8) % Lymph # (Auto) 1.3 (1.2-5.4) K/mm3 [place] # (Auto) 0.2 (0.0-0.8) K/mm3 Eos # (Auto) 0.1 (0.0-0.4) K/mm3 Baso # (Auto) 0.1 (0.0-0.1) K/mm3 Seg Neutrophils % 72.4 H (40.0-70.0) % Seg Neutrophils # 4.4 (1.8-7.7) K/mm3 Sodium 137 (137-145) mmol/L Potassium 3.7 (3.6-5.0) mmol/L Chloride 99.5 (98-107) mmol/L Carbon Dioxide 24 (22-30) mmol/L Anion Gap 17 mmol/L BUN 12 (7-17) mg/dL Creatinine 0.8 (0.6-1.2) mg/dL Estimated GFR > 60 ml/min BUN/Creatinine Ratio 15 % Glucose 128 H (65-100) mg/dL Calcium 9.3 (8.4-10.2) mg/dL Total Bilirubin 0.50 (0.1-1.2) mg/dL AST 19 (5-40) units/L ALT 16 (7-56) units/L Alkaline Phosphatase 69 (35-129) units/L Total Protein 7.7 (6.3-8.2) g/dL Albumin 4.0 (3.9-5) g/dL Albumin/Globulin Ratio 1.1 % HCG, Quant 2099 H (0-4) mIU/mL This is a 35-year-old female repeat hCG status. Patient is currently stable examined by me. Labs has been obtained. hCG quantitative is decreases prior to patient being seen on 04/18/2021. Patient's physical exam is unremarkable. Patient was instructed to follow-up with a [facility] [facility] [employer] doctor in 3-5 days or if symptoms worsen and continue return to emergency room as soon as possible. At time of discharge, the patient does not seem toxic or ill in appearance. No acute signs of distress noted. Patient agrees to discharge treatment plan of care. No further questions noted by the patient. Critical care attestation.: If time is entered above; I have spent that time in minutes in the direct care of this critically ill patient, excluding procedure time. ED Disposition Clinical Impression: Visit for confirmation of test result with physical exam Disposition: 01 HOME / SELF CARE / HOMELESS Is pt being admited?: No Does the pt Need Aspirin: No Condition: Stable Instructions: Abdominal Pain (ED) Additional Instructions: Follow-up with a [facility]NA[employer]EMENT [employer]S[facility]ANT doctor in 3-5 days or if symptoms worsen and continue return to emergency room as soon as possible. Referrals: PRIMARY [facility]ARE, [Primary Care Provider] - 3-5 Days [facility] [Provider Group] - 3-5 Days Time of Disposition: 14:53
[2021-04-21 15:36] VITALS: BP 117/61
== END 2021-04-21 15:43 | disposition home or self-care (01) ==
LOC: ED 13:06
DX: Z32.00 Encounter for pregnancy test, result unknown (principal)
CPT/HCPCS: 36415; 80053; 84702; 85025; 99283

== ENCOUNTER 2021-10-05 15:51 | Emergency (ER) | payer OTHER ==
[2021-10-05] MEDS ORDERED: METOCLOPRAMIDE 10 MG/2 ML INJ IV STA (17:35)
[2021-10-05] MEDS ORDERED: SUMAtriptan SUCCINATE 6 MG/0.5 ML INJ SUB-Q ONE (17:35)
--- NOTE | 2021-10-05 18:27 | Emergency Department Report ---
ED General Adult HPI - General Chief complaint: Headache Stated complaint: HBP/DIZZY/HEADACHE/BLURRY VISION Time Seen by Provider: 10/05/21 16:52 Source: patient Mode of arrival: Ambulatory Limitations: No Limitations - History of Present Illness Initial comments: Patient presents with complaints of headache x1 day, bifrontal, throbbing, non radiating, 8/10, not worsened or relieved by anything, associated with blurry vision, nausea without vomiting. Denies numbness, weakness, neck stiffness, rhinorrhea, nasal congestion. Severity scale (0 -10): 7 - Related Data Previous Rx's Medication Instructions Recorded Last Taken Type Ondansetron [Zofran Odt] 4 mg PO BID PRN #6 tab.rapdis 10/10/16 Unknown Rx Phenazopyridine [Pyridium] 100 mg PO TID #9 tab 10/10/16 Unknown Rx Diphenhydramine HCl [Benadryl GEL] 1 applicatio TP QID PRN #1 bottle 03/19/18 Unknown Rx Metoclopramide [Reglan] 10 mg PO TID PRN 7 Days #28 tab 03/19/18 Unknown Rx cephALEXin [Keflex] 500 mg PO TID #30 capsule 03/19/18 Unknown Rx diphenhydrAMINE [Benadryl CAP] 25 mg PO Q6HR PRN #30 capsule 03/19/18 Unknown Rx predniSONE [Deltasone] 40 mg PO QDAY 5 Days #10 tab 03/19/18 Unknown Rx Ondansetron [Zofran Odt] 4 mg PO Q6HR #15 tab.rapdis 08/19/19 Unknown Rx HYDROcodone/APAP 5-325 [[place] 1 each PO Q6HR PRN #10 tablet 04/05/21 Unknown Rx 5/325] Naproxen 375 mg PO BID PRN #14 tablet 04/18/21 Unknown Rx traMADoL [Ultram 50 MG tab] 50 mg PO Q6HR PRN #10 tablet 04/18/21 Unknown Rx Metoclopramide [Reglan TAB] 1 tab PO Q6H PRN #30 tab 10/05/21 Unknown Rx SUMAtriptan SUCCINATE [Imitrex] 1 tab PO Q6H PRN #30 tab 10/05/21 Unknown Rx Allergies Allergy/AdvReac Type Severity Reaction Status Date / Time Penicillins Allergy Rash Verified 10/05/21 18:11 ED Review of Systems ROS: Stated complaint: HBP/DIZZY/HEADACHE/BLURRY VISION Other details as noted in HPI Comment: All other systems reviewed and negative Constitutional: denies: chills, fever ED Past Medical Hx - Past Medical History Hx Hypertension: Yes Additional medical history: ECTOPIC - Surgical History Additional Surgical History: - Social History Smoking Status: Current Some Day Smoker Substance Use Type: None - Medications Home Medications: Home Medications Medication Instructions Recorded Confirmed Last Taken Type Ondansetron [Zofran Odt] 4 mg PO BID PRN #6 tab.rapdis 10/10/16 Unknown Rx Phenazopyridine [Pyridium] 100 mg PO TID #9 tab 10/10/16 Unknown Rx Diphenhydramine HCl [Benadryl GEL] 1 applicatio TP QID PRN #1 bottle 03/19/18 Unknown Rx Metoclopramide [Reglan] 10 mg PO TID PRN 7 Days #28 tab 03/19/18 Unknown Rx cephALEXin [Keflex] 500 mg PO TID #30 capsule 03/19/18 Unknown Rx diphenhydrAMINE [Benadryl CAP] 25 mg PO Q6HR PRN #30 capsule 03/19/18 Unknown Rx predniSONE [Deltasone] 40 mg PO QDAY 5 Days #10 tab 03/19/18 Unknown Rx Ondansetron [Zofran Odt] 4 mg PO Q6HR #15 tab.rapdis 08/19/19 Unknown Rx HYDROcodone/APAP 5-325 [[place] 1 each PO Q6HR PRN #10 tablet 04/05/21 Unknown Rx 5/325] Naproxen 375 mg PO BID PRN #14 tablet 04/18/21 Unknown Rx traMADoL [Ultram 50 MG tab] 50 mg PO Q6HR PRN #10 tablet 04/18/21 Unknown Rx Metoclopramide [Reglan TAB] 1 tab PO Q6H PRN #30 tab 10/05/21 Unknown Rx SUMAtriptan SUCCINATE [Imitrex] 1 tab PO Q6H PRN #30 tab 10/05/21 Unknown Rx ED Physical Exam - General Limitations: No Limitations General appearance: alert, in no apparent distress - Head Head exam: Present: atraumatic, normocephalic - Eye Eye exam: Present: PERRL, EOMI - ENT ENT exam: Present: mucous membranes moist, other (airway patent) - Neck Neck exam: Present: other (supple; no JVD) - Respiratory Respiratory exam: Present: other (good air entry, nml I:E, CTAB, no use of NELI) - Cardiovascular Cardiovascular Exam: Present: regular rate. Absent: rubs, gallop - GI/Abdominal GI/Abdominal exam: Present: soft, normal bowel sounds. Absent: distended, tenderness - Extremities Exam Extremities exam: Present: full ROM. Absent: tenderness - Back Exam Back exam: Present: full ROM. Absent: tenderness - Neurological Exam Neurological exam: Present: alert, oriented X3, CN II-XII intact, other (neg Kernig's and Brudzinski's signs). Absent: motor sensory deficit - Skin Skin exam: Present: warm, normal color ED Course Vital Signs 10/05/21 16:07 Temperature 98.4 F Pulse Rate 78 Respiratory 19 Rate Blood Pressure 156/103 [Right] O2 Sat by Pulse 97 Oximetry ED Medical Decision Making - Lab Data Result diagrams: 10/05/21 18:28 10/05/21 18:28 Laboratory Tests 10/05/21 10/05/21 10/05/21 18:09 18:28 18:28 WBC 9.5 RBC 4.65 Hgb 13.5 Hct 40.5 MCV 87 MCH 29 MCHC 33 RDW 14.1 Plt Count 230 Lymph % (Auto) 36.6 H [place] % (Auto) 6.2 Eos % (Auto) 2.1 Baso % (Auto) 1.2 Lymph # (Auto) 3.5 [place] # (Auto) 0.6 Eos # (Auto) 0.2 Baso # (Auto) 0.1 Seg Neutrophils % 53.9 Seg Neutrophils # 5.1 Sodium 136 L Potassium 4.2 Chloride 98.9 Carbon Dioxide 24 Anion Gap 17 BUN 11 Creatinine 0.8 Estimated GFR > 60 BUN/Creatinine Ratio 14 Glucose 81 Calcium 10.2 Total Bilirubin < 0.20 AST 15 ALT 10 Alkaline Phosphatase 61 Troponin T Total Protein 7.4 Albumin 4.7 Albumin/Globulin Ratio 1.7 HCG, Qual Ur Reducing Substances Not Reportable Urine Bilirubin Neg Urine Ictotest Not Reportable Urine RBC (Auto) 2.0 U Epithel Cells (Auto) 9.0 Urine HCG, Qual Negative 10/05/21 10/05/21 18:28 18:28 WBC RBC Hgb Hct MCV MCH MCHC RDW Plt Count Lymph % (Auto) [place] % (Auto) Eos % (Auto) Baso % (Auto) Lymph # (Auto) [place] # (Auto) Eos # (Auto) Baso # (Auto) Seg Neutrophils % Seg Neutrophils # Sodium Potassium Chloride Carbon Dioxide Anion Gap BUN Creatinine Estimated GFR BUN/Creatinine Ratio Glucose Calcium Total Bilirubin AST ALT Alkaline Phosphatase Troponin T < 0.010 Total Protein Albumin Albumin/Globulin Ratio HCG, Qual Negative Ur Reducing Substances Urine Bilirubin Urine Ictotest Urine RBC (Auto) U Epithel Cells (Auto) Urine HCG, Qual EKG: HR 60, SR, nml intervals, no significant ST deflections from isoelectric line in contiguous leads CT head: no acute intracranial process - Medical Decision Making Diff dz: - Headache: likely 2/2 migraine. No signs of meningitis, SAH, CVA, cerebral edema, intracranial space occupying lesions. Received reglan 10 mg IV x 1, imitrex 6 mg SC x 1. NIX resolved within 10 minutes post meds. Critical care attestation.: If time is entered above; I have spent that time in minutes in the direct care of this critically ill patient, excluding procedure time. ED Disposition Clinical Impression: Headache Disposition: 01 HOME / SELF CARE / HOMELESS Is pt being admited?: No Does the pt Need Aspirin: No Condition: Stable Instructions: Migraine Headache, [id number], General Headache Without Cause Additional Instructions: Follow up with your regular doctor within 2 - 4 days. Return to the ER if your symptoms worsen. Prescriptions: SUMAtriptan SUCCINATE [Imitrex] 1 tab PO Q6H PRN #30 tab PRN Reason: Headache Metoclopramide [Reglan TAB] 1 tab PO Q6H PRN #30 tab PRN Reason: Nausea And Vomiting Referrals: PRIMARY CARE, [Primary Care Provider] - 3-5 Days Time of Disposition: 19:45
[2021-10-05 18:49] LABS: Basophils # (Auto) 0.1 K/mm3 (0.0-0.1); Basophils % (Auto) 1.2 % (0.0-1.8); Eosinophils # (Auto) 0.2 K/mm3 (0.0-0.4); Eosinophils % (Auto) 2.1 % (0.0-4.3); Hematocrit 40.5 % (30.3-42.9); Hemoglobin 13.5 gm/dl (10.1-14.3); Lymphocytes # (Auto) 3.5 K/mm3 (1.2-5.4); Lymphocytes % (Auto) 36.6 % (13.4-35.0); Mean Corpuscular HGB Conc 33 % (30-34); Mean Corpuscular Volume 87 fl (79-97); Monocytes # (Auto) 0.6 K/mm3 (0.0-0.8); Monocytes % (Auto) 6.2 % (0.0-7.3); Platelet Count 230 K/mm3 (140-440); Red Blood Count 4.65 M/mm3 (3.65-5.03); Red Cell Distribution Width 14.1 % (13.2-15.2)
[2021-10-05 19:02] LABS: Alanine Aminotransferase 10 units/L (7-56); Albumin 4.7 g/dL (3.9-5); BUN/Creatinine Ratio 14; Blood Urea Nitrogen 11 mg/dL (7-17); Calcium 10.2 mg/dL (8.4-10.2); Hemolysis Index 15
[2021-10-05 19:28] LABS: HCG Qualitative,Urine Negative (Negative)
[2021-10-05 19:30] LABS: Bacteria,Urine 2+ /HPF (Negative); Bilirubin,Urine NEG (Negative); Blood,Urine SM (Negative); Color,Urine Yellow (Yellow); Protein,Urine <15 mg/dL mg/dL (Negative)
--- NOTE | 2021-10-05 19:50 | Cat Scan Report ---
CT HEAD WITHOUT CONTRAST INDICATION / CLINICAL INFORMATION: Headache. TECHNIQUE: All CT scans at this location are performed using CT dose reduction for ALARA by means of automated exposure control. COMPARISON: None available. FINDINGS: HEMORRHAGE: None. EXTRA-AXIAL SPACES: Normal in size and morphology for the patient's age. VENTRICULAR SYSTEM: Normal in size and morphology for the patient's age. CEREBRAL PARENCHYMA: No significant abnormality. No acute territorial infarct. MIDLINE SHIFT / HERNIATION: None. CEREBELLUM / BRAINSTEM: No significant abnormality. ORBITS: Normal as visualized. SOFT TISSUES: No significant abnormality. SKULL: No significant abnormality. PARANASAL SINUSES / MASTOID AIR CELLS: Normal as visualized. ADDITIONAL FINDINGS: None. IMPRESSION: 1. No acute intracranial abnormality. Signer Name: Isai Rea MD Signed: 10/05/2021 7:45 PM Workstation Name: [id number]
[2021-10-05 21:00] LABS: Erythrocyte Sedimentation Rate 33 mm/Hr (0-20)
[2021-10-05 21:14] VITALS: BP 146/86
--- NOTE | 2021-10-07 13:32 | Electrocardiograph Report ---
[facility] Test Date: 2021-10-05 Test Time: 18:56:40 Pat Name: BRANDIN HANNA Department: Room: Gender: F Front Window Cashier: MORIAH : 1985 Requested By: SHANEL MARTÍNEZ Order Number: [id number] Reading MD: Bala Mandel Measurements Intervals [place] Rate: 59 P: 75 NM: 146 QRS: 47 QRSD: 81 T: 32 QT: 398 QTc: 394 Interpretive Statements Sinus rhythm Consider left ventricular hypertrophy No previous ECG available for comparison Electronically Signed On 10-07-2021 13:32:03 EDT by Bala Mandel
== END 2021-10-05 21:11 | disposition home or self-care (01) ==
LOC: ED 15:51
DX: R51.9 Headache, unspecified (principal); I10 Essential (primary) hypertension; F17.200 Nicotine dependence, unspecified, uncomplicated; Z91.09 Other allergy status, other than to drugs and biological substances
CPT/HCPCS: 36415; 70450; 80053; 81001; 81025; 84484; 84703; 85025; 85652; 93005; 96372; 96374; 99284; J2765; J3490; J3030